=== PATIENT | female | born 1975 | race Two or more races ===

== ENCOUNTER 2019-02-21 14:31 | Emergency (ER) | payer SELFPAY ==
--- NOTE | 2019-02-21 14:49 | ER Document Report ---
ED Medical Screen (RME) - General Chief Complaint: Suicidal Ideation Stated Complaint: SUCIDIAL IDEATION Time Seen by Provider: 02/21/19 14:47 Mode of Arrival: Ambulatory Information source: Patient Notes: Patient presents emergency department with complaints that she is depressed and suicidal. Reports she has a plan. Does not admit to attempting suicide in the past. Reports she is out of her meds and thinks her boyfriend is cheating on her. I have greeted and performed a rapid initial assessment of this patient. A comprehensive ED assessment and evaluation of the patient, analysis of test results and completion of the medical decision making process will be conducted by additional ED providers. Dictation of this chart was performed using voice recognition software; therefore, there may be some unintended grammatical errors. TRAVEL OUTSIDE OF THE [place] IN LAST 30 DAYS: No - Related Data Allergies/Adverse Reactions: No Known Allergies Allergy (Verified 02/21/19 14:35) Physical Exam - Vital signs Vitals: Temp Pulse Resp BP Pulse Ox 97.8 F 75 16 124/89 H 97 02/21/19 14:41 02/21/19 14:41 02/21/19 14:41 02/21/19 14:41 02/21/19 14:41 Course - Vital Signs Vital signs: Temp Pulse Resp BP Pulse Ox 97.8 F 75 16 124/89 H 97 02/21/19 14:41 02/21/19 14:41 02/21/19 14:41 02/21/19 14:41 02/21/19 14:41
[2019-02-21 15:09] LABS: APPEARANCE,URINE CLEAR; BILIRUBIN,URINE NEGATIVE (NEGATIVE); COLOR,URINE YELLOW; GLUCOSE, URINE NEGATIVE (NEGATIVE); KETONES,URINE NEGATIVE (NEGATIVE); LEUKOCYTE ESTERASE,URINE NEGATIVE (NEGATIVE); NITRITE,URINE NEGATIVE (NEGATIVE); PROTEIN,URINE NEGATIVE (NEGATIVE); URINE SPECIFIC GRAVITY 1.014; UROBILINOGEN,URINE NEGATIVE mg/dL (<2.0)
[2019-02-21 15:13] LABS: ABSOLUTE BASOPHILS # (AUTO) 0.1 10^3/uL (0.0-0.2); ABSOLUTE EOSINOPHILS # (AUTO) 0.2 10^3/uL (0.0-0.6); ABSOLUTE MONOCYTES (AUTO) 0.5 10^3/uL (0.1-1.4); ABSOLUTE NEUT (AUTO) 3.6 10^3/uL (1.7-8.2); BASOPHILS % (AUTO) 1.6 % (0-2); EOSINOPHILS % (AUTO) 2.6 % (0-6); HEMATOCRIT 36.5 % (36.0-47.0); HEMOGLOBIN 12.4 g/dL (12.0-15.5); LYMPHOCYTES % (AUTO) 31.3 % (13-45); MEAN CORPUSCULAR HEMOGLOBIN 26.4 pg (27.0-33.4); MEAN CORPUSCULAR VOLUME 78 fl (80-97); MONOCYTES % (AUTO) 8.2 % (3-13); PLATELET COUNT 275 10^3/uL (150-450); RED BLOOD COUNT 4.71 10^6/uL (3.72-5.28); RED CELL DISTRIBUTION WIDTH 16.8 % (11.5-14.0); SEGMENTED NEUTROPHILS % (AUTO) 56.3 % (42-78); TOTAL CELLS COUNTED % (AUTO) 100 %; WHITE BLOOD COUNT 6.4 10^3/uL (4.0-10.5)
[2019-02-21 15:35] LABS: URINE AMPHETAMINES SCREEN NEGATIVE; URINE BARBITURATES SCREEN NEGATIVE; URINE BENZODIAZEPINES SCREEN NEGATIVE; URINE COCAINE SCREEN NEGATIVE; URINE MARIJUANA (THC) SCREEN NEGATIVE; URINE METHADONE SCREEN NEGATIVE; URINE PHENCYCLIDINE SCREEN NEGATIVE
[2019-02-21 15:40] LABS: ALANINE AMINOTRANSFERASE 33 U/L (9-52); ALKALINE PHOSPHATASE 64 U/L (38-126); ANION GAP 9 (5-19); ASPARTATE AMINO TRANSFERASE 25 U/L (14-36); BILIRUBIN,DIRECT 0.3 mg/dL (0.0-0.4); BILIRUBIN,TOTAL 0.5 mg/dL (0.2-1.3); BLOOD UREA NITROGEN 9 mg/dL (7-20); CALCIUM 9.4 mg/dL (8.4-10.2); CARBON DIOXIDE 24 mmol/L (22-30); CHLORIDE 109 mmol/L (98-107); GLUCOSE 98 mg/dL (75-110); SODIUM 141.6 mmol/L (137-145)
[2019-02-21 15:41] LABS: ACETAMINOPHEN < 10 ug/mL (10-30); ALBUMIN 4.2 g/dL (3.5-5.0); ALCOHOL < 10 mg/dL (NONE DETECTED); SALICYLATE < 1.0 mg/dL (2.0-20.0); TOTAL PROTEIN 7.4 g/dL (6.3-8.2)
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
--- NOTE | 2019-02-21 16:34 | EKG REPORT ---
SEVERITY:- ABNORMAL ECG - SINUS RHYTHM LEFT AXIS DEVIATION LEFT VENTRICULAR HYPERTROPHY NONSPECIFIC ST-T CHANGES- INFERIOR LEADS : Confirmed by: Hilario Jensen MD 21-Feb-2019 16:33:34
[2019-02-21] MEDS ORDERED: SERTRALINE HCL 50 MG TABLET PO ONE (19:55)
[2019-02-21] MEDS ORDERED: ARIPIPRAZOLE 5 MG TABLET PO ONE (19:55)
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
--- NOTE | 2019-02-22 09:32 | ER Document Report ---
Doctor's Note Notes: 02/22/19 09:31 Patient seen and evaluated. She was upset when I entered the room and states she feels no better. Patient states she still feels like she wants to be and is having thoughts of killing herself. I asked if she was discharged home today what she would do and she told me she would "slit my wrists or take pills". Patient is still actively suicidal with plan. She will remain in the emergency room or be admitted for further psychiatric management.
[2019-02-22] MEDS ORDERED: SERTRALINE HCL 50 MG TABLET PO SCH (10:00)
[2019-02-22] MEDS ORDERED: ARIPIPRAZOLE 5 MG TABLET PO SCH (10:00)
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
[2019-02-22 14:26] VITALS: BP 138/84
== END 2019-02-22 14:30 ==
LOC: ER 14:31
DX: F31.60 Bipolar disorder, current episode mixed, unspecified (principal); R45.851 Suicidal ideations; R45.850 Homicidal ideations; T43.596A Underdosing of other antipsychotics and neuroleptics, initial encounter; T43.226A Underdosing of selective serotonin reuptake inhibitors, initial encounter; Z91.128 Patient's intentional underdosing of medication regimen for other reason; Z91.14 Patient's other noncompliance with medication regimen; J45.909 Unspecified asthma, uncomplicated
CPT/HCPCS: 36415; 80053; 80307; 81001; 81025; 85025; 93005; 93010; 99285

== ENCOUNTER 2019-05-13 23:39 | Emergency (ER) | payer MEDICAID ==
[2019-05-13] MEDS ORDERED: ACETAMINOPHEN 325 MG TABLET PO ONE (23:49)
--- NOTE | 2019-05-13 23:51 | ER Document Report ---
ED General - General Stated Complaint: ABDOMINAL PAIN Time Seen by Provider: 05/13/19 23:49 Notes: Patient is a pleasant 43-year-old female presents with complaints of abdominal pain. Abdominal pain started approximately 20 minutes ago. She points to her suprapubic region is a area of the abdominal pain. She denies any vomiting. No fevers. No abnormal vaginal discharge or bleeding. Last menstrual period was 1 week ago. She said this was a normal period for her. She is sexually active. No history of abdominal surgeries. She denies take any medications on a regular basis. She denies any chronic medical problems. Nothing seems to make the pain better or worse. TRAVEL OUTSIDE OF THE [place] IN LAST 30 DAYS: No - Related Data Allergies/Adverse Reactions: No Known Allergies Allergy (Verified 02/21/19 14:35) Past Medical History - Social History Smoking Status: Unknown if Ever Smoked Frequency of alcohol use: None Drug Abuse: None Family History: Reviewed & Not Pertinent Pulmonary Medical History: Reports: Hx Asthma Renal/ Medical History: Denies: Hx Peritoneal Dialysis Psychiatric Medical History: Reports: Hx Bipolar Disorder Review of Systems - Review of Systems Notes: My Normal Review Basic REVIEW OF SYSTEMS: CONSTITUTIONAL : Denies fever, chills, or sweats. Denies recent illness. EENT: Denies eye, ear, throat, or mouth pain or symptoms. Denies nasal or sinus congestion. RESPIRATORY: Denies cough, cold, or chest congestion. Denies shortness of breath, difficulty breathing, or wheezing. GASTROINTESTINAL: Abdominal pain. Denies nausea, vomiting, or diarrhea. GENITOURINARY: Denies difficulty urinating, painful urination, burning, frequency, or blood in urine. FEMALE GENITOURINARY: Denies vaginal bleeding, abnormal or irregular periods. LMP: 1 week ago MUSCULOSKELETAL: Denies neck or back pain or joint pain or swelling. SKIN: Denies rash or skin lesions. NEUROLOGICAL: Denies altered mental status or loss of consciousness. Denies headache. Denies weakness or paralysis or loss of use of either side. Denies problems with gait or speech. Denies sensory or motor loss. ALL OTHER SYSTEMS REVIEWED AND NEGATIVE. Physical Exam - Vital signs Vitals: Temp Pulse Resp BP Pulse Ox 97.3 F 65 20 115/66 99 05/13/19 23:39 05/13/19 23:39 05/13/19 23:39 05/13/19 23:39 05/13/19 23:39 - Notes Notes: General Appearance: Well nourished, alert, cooperative, no acute distress, no obvious discomfort. Well-appearing Vitals: reviewed, See vital signs table. Head: no swelling or tenderness to the head Eyes: PERRL, EOMI, Conjuctiva clear Mouth: No decreasd moisture Throat: No tonsillar inflammation, No airway obstruction, No lymphadenopathy Neck: Supple, no neck tenderness, No thyromegaly Lungs: No wheezing, No rales, No rhonci, No accessory muscle use, good air exchange bilaterally. Heart: Normal rate, Regular rythm, No murmur, no rub Abdomen: Normal BS, soft, No rigidity, patient has diffuse mild tenderness patient of the abdomen is worse over the suprapubic region., No guarding, no rebound, no abdominal masses, no organomegaly Extremities: good pulses in all extremities, no swelling or tenderness in the extremities, no edema. Skin: warm, dry, appropriate color, no rash Neuro: speech clear, oriented x 3, normal affect, responds appropriately to questions. normal gait. Course - Re-evaluation Re-evalutation: 05/14/19 01:08 Reevaluation patient continues to appear fine. Her abdominal exam is very benign. She has no leukocytosis and she looks well. Urine does show some evidence of infection that she does have large leukocyte esterase and 80 white blood cells. She also has a lot of epithelial cells that this could be contaminant but being that the patient does have suprapubic abdominal pain we will treat her upfront and send her urine for culture. I informed the plan to the patient she is agreeable to it. I informed her of a low threshold to return to ER if she has worsening pain, fevers, or vomiting. Patient to return to the ER if she still having pain after 24 hours. Patient agrees with plan and will be discharged home. Dictation of this chart was performed using voice recognition software; therefore, there may be some unintended grammatical errors. - Vital Signs Vital signs: Temp Pulse Resp BP Pulse Ox 97.3 F 65 20 115/66 99 05/13/19 23:39 05/13/19 23:39 05/13/19 23:39 05/13/19 23:39 05/13/19 23:39 - Laboratory Result Diagrams: 05/14/19 00:20 05/14/19 00:20 Laboratory results interpreted by me: 05/13/19 05/14/19 23:45 00:20 Hgb 11.4 L Hct 34.6 L MCH 26.2 L RDW 14.5 H Ur Leukocyte Esterase LARGE H Discharge - Discharge Clinical Impression: Pyuria Abdominal pain Qualifiers: Abdominal location: unspecified location Qualified Code(s): R10.9 - Unspecified abdominal pain Condition: Good Disposition: HOME, SELF-CARE Additional Instructions: Your blood work did not show any concerning findings in regards to your abdominal pain. Urine does show some evidence of a likely infection. This could be why you are having some pain in the lower portion of your abdomen. We will start you on an antibiotic called Keflex. Please take the Keflex as prescribed. You will need to take a total of 5 days of this antibiotic. The first 3 days supply will be given to you here. The last 2 days of supply of medication need to be filled at the pharmacy. These follow-up with your doctor on Friday for reevaluation. Please have a low threshold to return to ER if you have worsening pain, fevers, vomiting, or feel unwell. You should be seeing some improvement in your pain next 24 hours. If you are still having significant pain after 24 hours you should return to the ER for reevaluation. Prescriptions: Cephalexin Monohydrate [Keflex 500 mg Capsule] 500 mg PO BID #4 capsule Cephalexin Monohydrate [Keflex 500 mg Capsule] 500 mg PO BID #6 capsule
[2019-05-14 00:08] LABS: APPEARANCE,URINE CLOUDY; BILIRUBIN,URINE NEGATIVE (NEGATIVE); COLOR,URINE YELLOW; GLUCOSE, URINE NEGATIVE (NEGATIVE); KETONES,URINE NEGATIVE (NEGATIVE); LEUKOCYTE ESTERASE,URINE LARGE (NEGATIVE); NITRITE,URINE NEGATIVE (NEGATIVE); PROTEIN,URINE NEGATIVE (NEGATIVE); URINE SPECIFIC GRAVITY 1.029; UROBILINOGEN,URINE NEGATIVE mg/dL (<2.0)
[2019-05-14 00:37] LABS: ABSOLUTE BASOPHILS # (AUTO) 0.1 10^3/uL (0.0-0.2); ABSOLUTE EOSINOPHILS # (AUTO) 0.2 10^3/uL (0.0-0.6); ABSOLUTE LYMPHOCYTES (AUTO) 2.2 10^3/uL (0.5-4.7); ABSOLUTE MONOCYTES (AUTO) 0.3 10^3/uL (0.1-1.4); BASOPHILS % (AUTO) 1.2 % (0-2); EOSINOPHILS % (AUTO) 3.2 % (0-6); HEMATOCRIT 34.6 % (36.0-47.0); HEMOGLOBIN 11.4 g/dL (12.0-15.5); LYMPHOCYTES % (AUTO) 38.3 % (13-45); MEAN CORPUSCULAR HEMOGLOBIN 26.2 pg (27.0-33.4); MEAN CORPUSCULAR VOLUME 80 fl (80-97); MONOCYTES % (AUTO) 5.3 % (3-13); PLATELET COUNT 301 10^3/uL (150-450); RED BLOOD COUNT 4.35 10^6/uL (3.72-5.28); RED CELL DISTRIBUTION WIDTH 14.5 % (11.5-14.0); TOTAL CELLS COUNTED % (AUTO) 100 %; WHITE BLOOD COUNT 5.8 10^3/uL (4.0-10.5)
[2019-05-14 00:51] LABS: ALKALINE PHOSPHATASE 73 U/L (38-126); ANION GAP 9 (5-19); ASPARTATE AMINO TRANSFERASE 19 U/L (14-36); BILIRUBIN,DIRECT 0.1 mg/dL (0.0-0.4); BILIRUBIN,TOTAL 0.2 mg/dL (0.2-1.3); BLOOD UREA NITROGEN 13 mg/dL (7-20); CALCIUM 9.3 mg/dL (8.4-10.2); CARBON DIOXIDE 26 mmol/L (22-30); CHLORIDE 106 mmol/L (98-107); GLUCOSE 109 mg/dL (75-110); POTASSIUM 3.8 mmol/L (3.6-5.0)
[2019-05-14] MEDS ORDERED: CEPHALEXIN 500 MG CAPSULE PO ONE (01:09)
[2019-05-14 01:23] VITALS: BP 145/78
== END 2019-05-14 01:17 | disposition home or self-care (01) ==
LOC: ER 23:39
DX: N39.0 Urinary tract infection, site not specified (principal); R10.9 Unspecified abdominal pain; R10.30 Lower abdominal pain, unspecified; J45.909 Unspecified asthma, uncomplicated
CPT/HCPCS: 36415; 80053; 81001; 84703; 85025; 87086; 87088; 87186; 99284

== ENCOUNTER 2019-07-05 12:20 | Emergency (ER) | payer SELFPAY ==
[2019-07-05] MEDS ORDERED: ONDANSETRON 4 MG TAB.RAPDIS PO ONE (13:01)
--- NOTE | 2019-07-05 13:18 | ER Document Report ---
ED Medical Screen (RME) - General Chief Complaint: Nausea/Vomiting Stated Complaint: ABDOMINAL PAIN Time Seen by Provider: 07/05/19 12:43 Notes: Patient is a 44-year-old female who presents emergency department with a chief complaint of nausea and vomiting. Patient states that for the past 3 weeks she has vomited every morning. She is able to keep food down throughout the day, but only wakes up in the morning. Last menstrual cycle was May 26. She is not normally late on her menstrual cycles. Patient last vomited this morning, but was able to keep food down afterwards. Denies abdominal pain. Exam: Soft nontender abdomen. I have greeted and performed a rapid initial assessment of this patient. A comprehensive ED assessment and evaluation of the patient, analysis of test results and completion of medical decision making process will be conducted by an additional ED providers. TRAVEL OUTSIDE OF THE [place] IN LAST 30 DAYS: No - Related Data Allergies/Adverse Reactions: No Known Allergies Allergy (Verified 02/21/19 14:35) Past Medical History - Social History Chew tobacco use (# tins/day): No Frequency of alcohol use: None Drug Abuse: None Pulmonary Medical History: Reports: Hx Asthma Renal/ Medical History: Denies: Hx Peritoneal Dialysis Psychiatric Medical History: Reports: Hx Bipolar Disorder Physical Exam - Vital signs Vitals: Temp Pulse Resp BP Pulse Ox 98.3 F 70 22 H 147/82 H 96 07/05/19 12:30 07/05/19 12:30 07/05/19 12:30 07/05/19 12:30 07/05/19 12:30 Course - Vital Signs Vital signs: Temp Pulse Resp BP Pulse Ox 98.3 F 70 22 H 147/82 H 96 07/05/19 12:30 07/05/19 12:30 07/05/19 12:30 07/05/19 12:30 07/05/19 12:30
[2019-07-05 13:30] LABS: ABSOLUTE EOSINOPHILS # (AUTO) 0.2 10^3/uL (0.0-0.6); ABSOLUTE LYMPHOCYTES (AUTO) 1.5 10^3/uL (0.5-4.7); ABSOLUTE MONOCYTES (AUTO) 0.3 10^3/uL (0.1-1.4); ABSOLUTE NEUT (AUTO) 2.7 10^3/uL (1.7-8.2); BASOPHILS % (AUTO) 0.1 % (0-2); EOSINOPHILS % (AUTO) 3.6 % (0-6); HEMATOCRIT 36.4 % (36.0-47.0); HEMOGLOBIN 12.2 g/dL (12.0-15.5); LYMPHOCYTES % (AUTO) 31.3 % (13-45); MEAN CORPUSCULAR HEMOGLOBIN 26.3 pg (27.0-33.4); MEAN CORPUSCULAR HGB CONC 33.5 g/dL (32.0-36.0); MEAN CORPUSCULAR VOLUME 79 fl (80-97); MONOCYTES % (AUTO) 6.3 % (3-13); PLATELET COUNT 299 10^3/uL (150-450); RED BLOOD COUNT 4.63 10^6/uL (3.72-5.28); RED CELL DISTRIBUTION WIDTH 14.6 % (11.5-14.0); SEGMENTED NEUTROPHILS % (AUTO) 58.7 % (42-78); TOTAL CELLS COUNTED % (AUTO) 100 %; WHITE BLOOD COUNT 4.7 10^3/uL (4.0-10.5)
[2019-07-05 13:57] LABS: ALBUMIN 4.2 g/dL (3.5-5.0); ALKALINE PHOSPHATASE 67 U/L (38-126); ANION GAP 11 (5-19); ASPARTATE AMINO TRANSFERASE 22 U/L (14-36); BILIRUBIN,DIRECT 0.1 mg/dL (0.0-0.4); BILIRUBIN,TOTAL 0.3 mg/dL (0.2-1.3); BLOOD UREA NITROGEN 12 mg/dL (7-20); CALCIUM 9.3 mg/dL (8.4-10.2); CARBON DIOXIDE 24 mmol/L (22-30); CHLORIDE 107 mmol/L (98-107); GLUCOSE 105 mg/dL (75-110); POTASSIUM 4.2 mmol/L (3.6-5.0); TOTAL PROTEIN 7.6 g/dL (6.3-8.2)
[2019-07-05 14:20] LABS: APPEARANCE,URINE CLEAR; BILIRUBIN,URINE NEGATIVE (NEGATIVE); COLOR,URINE YELLOW; GLUCOSE, URINE NEGATIVE (NEGATIVE); KETONES,URINE TRACE mg/dL (NEGATIVE); PROTEIN,URINE NEGATIVE (NEGATIVE); URINE SPECIFIC GRAVITY 1.021
--- NOTE | 2019-07-05 15:52 | ER Document Report ---
ED General - General Chief Complaint: Nausea/Vomiting Stated Complaint: ABDOMINAL PAIN Time Seen by Provider: 07/05/19 12:43 Mode of Arrival: Ambulatory Information source: Patient Notes: This 44-year-old female presents emergency department with reports that she has been nauseated and gagging every morning for the past 3 weeks. She reports she has not been vomiting and she is able to drink and eat throughout the day without any problems. She also reports gum helps with the nausea. Patient reports she is homeless [facility] at this time. Reports she just moved from [place] to [place] to be with her boyfriend. Reports her boyfriend lives with Ana Laura friend of his and they are supposed to be looking for a place but she needs to be out of the jail by the end of the month. Patient reports she is very stressed. Denies fever or diarrhea. Patient reports she is bipolar taking Zoloft and Abilify without problems for a while. Reports these are not new meds. TRAVEL OUTSIDE OF THE [place] IN LAST 30 DAYS: No - HPI Onset: Other - 3 weeks Onset/Duration: Persistent Quality of pain: No pain Associated symptoms: Nausea. denies: Vomiting Exacerbated by: Denies Relieved by: Denies Similar symptoms previously: No Recently seen / treated by doctor: No - Related Data Allergies/Adverse Reactions: No Known Allergies Allergy (Verified 02/21/19 14:35) Past Medical History - General Information source: Patient Last Menstrual Period: 05/26/19 - Social History Smoking Status: Never Smoker Chew tobacco use (# tins/day): No Frequency of alcohol use: None Drug Abuse: None Lives with: Homeless Family History: Reviewed & Not Pertinent Patient has suicidal ideation: No Patient has homicidal ideation: No Pulmonary Medical History: Reports: Hx Asthma Renal/ Medical History: Denies: Hx Peritoneal Dialysis Psychiatric Medical History: Reports: Hx Bipolar Disorder Past Surgical History: Reports: Hx Tubal Ligation Review of Systems - Review of Systems Notes: Review HPI for review of systems., All other systems negative Physical Exam - Vital signs Vitals: Temp Pulse Resp BP Pulse Ox 98.3 F 70 22 H 147/82 H 96 07/05/19 12:30 07/05/19 12:30 07/05/19 12:30 07/05/19 12:30 07/05/19 12:30 - Notes Notes: PHYSICAL EXAMINATION: GENERAL: Well-appearing and in no acute distress HEAD: Atraumatic, normocephalic. EYES: Pupils equal round and reactive to light, extraocular movements intact, sclera anicteric, conjunctiva are normal. ENT: nares patent, oropharynx clear without exudates. Moist mucous membranes. NECK: Normal range of motion, supple without lymphadenopathy LUNGS: CTAB and equal. No wheezes rales or rhonchi. HEART: Regular rate and rhythm without murmurs ABDOMEN: Soft, no tenderness. No guarding, no rebound EXTREMITIES: Normal range of motion, no pitting edema. No cyanosis. NEUROLOGICAL: Cranial nerves grossly intact. Normal sensory/motor exams. PSYCH: Normal mood, normal affect. SKIN: Warm, Dry, normal turgor, no rashes or lesions noted Course - Re-evaluation Re-evalutation: 07/05/19 This 44-year-old female presents emergency department with complaints of nausea and gagging in the morning. She reports she does not vomit. Reports she is able to eat and drink fine without any problems rest today. Also reports gum helps with the nausea. Patient reports she is very nervous she is homeless and will have to be getting out of the jail within the end of the month. She reports she came to [place] to be with her boyfriend Andrew. She reports Andrew lives with a friend, Piero. Piero's will not let Crystal moving with the family. Patient denies nausea at this time. Labs unremarkable patient is negative for . Patient was instructed to monitor symptoms return for concerns follow-up with a primary care provider. She does have Medicaid and was provided with a list of primary care providers. Dictation of this chart was performed using voice recognition software; therefore, there may be some unintended grammatical errors. - Vital Signs Vital signs: Temp Pulse Resp BP Pulse Ox 97.7 F 61 20 144/93 H 96 07/05/19 16:34 07/05/19 16:34 07/05/19 16:34 07/05/19 16:34 07/05/19 16:34 - Laboratory Result Diagrams: 07/05/19 13:11 07/05/19 13:11 Laboratory results interpreted by me: 07/05/19 07/05/19 13:11 13:11 MCV 79 L MCH 26.3 L RDW 14.6 H Urine Ketones TRACE H Urine Urobilinogen 2.0 H Leukocyte Esterase Rfl TRACE H Discharge - Discharge Clinical Impression: Nausea Condition: Stable Disposition: HOME, SELF-CARE Instructions: Family Physicians / Practices, Nausea or Vomiting, Nonspecific ([facility]) Additional Instructions: *You have been evaluated for nausea and gagging *Ensure adequate fluid intake as discussed to prevent dehydration *Follow up with a primary care provider within one week for recheck *Return to ED for worsening condition, changes, needs Monitor your blood pressure. Your blood pressure was elevated today. This may be because you were anxious, in pain or because you need medication. It is important to follow up with your primary care provider for full evaluation. Forms: Elevated Blood Pressure
[2019-07-05 16:38] VITALS: BP 144/93
== END 2019-07-05 16:57 | disposition home or self-care (01) ==
LOC: ER 12:20
DX: R11.0 Nausea (principal); J45.909 Unspecified asthma, uncomplicated; F31.9 Bipolar disorder, unspecified; Z79.899 Other long term (current) drug therapy; Z59.0 Homelessness; Z98.51 Tubal ligation status
CPT/HCPCS: 99283; 36415; 87086; 83690; 84703; 85025; 80053; 81001; S0119

== ENCOUNTER 2019-07-22 13:30 | Emergency (ER) | payer MEDICAID ==
--- NOTE | 2019-07-22 13:47 | ER Document Report ---
ED Medical Screen (RME) - General Chief Complaint: Psych Problem Stated Complaint: SUICIDAL IDEATION Time Seen by Provider: 07/22/19 13:43 Notes: 44-year-old female with bipolar disorder presents to the emergency department with chief complaint of suicidal ideations. She is with her boil off machine operator cloth has been trying to assist her with housing. Patient states that she was in a [facility] days, was evicted, and is been staying at a hotel in the interval. Patient states she is running out of money and expressed to her boil off machine operator cloth that she had thoughts of killing herself. No plan. No auditory or visual hallucinations. Exam: Well-appearing in no acute distress, flat affect, linear thought process and normal speech, depressed mood. I have greeted and performed a rapid initial assessment of this patient. A comprehensive ED assessment and evaluation of the patient, analysis of test results and completion of medical decision making process will be conducted by an additional ED providers. TRAVEL OUTSIDE OF THE [place] IN LAST 30 DAYS: No - Related Data Allergies/Adverse Reactions: No Known Allergies Allergy (Verified 02/21/19 14:35) Home Medications: zoloft. abilify Past Medical History - Social History Frequency of alcohol use: None Drug Abuse: None Pulmonary Medical History: Reports: Hx Asthma Renal/ Medical History: Denies: Hx Peritoneal Dialysis Psychiatric Medical History: Reports: Hx Bipolar Disorder Past Surgical History: Reports: Hx Tubal Ligation Physical Exam - Vital signs Vitals: Temp Pulse Resp BP Pulse Ox 97.7 F 74 20 145/82 H 98 07/22/19 13:35 07/22/19 13:35 07/22/19 13:35 07/22/19 13:35 07/22/19 13:35 Course - Vital Signs Vital signs: Temp Pulse Resp BP Pulse Ox 97.7 F 74 20 145/82 H 98 07/22/19 13:35 07/22/19 13:35 07/22/19 13:35 07/22/19 13:35 07/22/19 13:35
[2019-07-22 14:29] LABS: ABSOLUTE EOSINOPHILS # (AUTO) 0.2 10^3/uL (0.0-0.6); ABSOLUTE LYMPHOCYTES (AUTO) 1.7 10^3/uL (0.5-4.7); ABSOLUTE MONOCYTES (AUTO) 0.3 10^3/uL (0.1-1.4); ABSOLUTE NEUT (AUTO) 2.4 10^3/uL (1.7-8.2); BASOPHILS % (AUTO) 0.9 % (0-2); EOSINOPHILS % (AUTO) 3.4 % (0-6); HEMOGLOBIN 12.7 g/dL (12.0-15.5); LYMPHOCYTES % (AUTO) 37.7 % (13-45); MEAN CORPUSCULAR HGB CONC 33.5 g/dL (32.0-36.0); MEAN CORPUSCULAR VOLUME 78 fl (80-97); MONOCYTES % (AUTO) 6.4 % (3-13); PLATELET COUNT 297 10^3/uL (150-450); RED BLOOD COUNT 4.88 10^6/uL (3.72-5.28); RED CELL DISTRIBUTION WIDTH 15.1 % (11.5-14.0); SEGMENTED NEUTROPHILS % (AUTO) 51.6 % (42-78); TOTAL CELLS COUNTED % (AUTO) 100 %; WHITE BLOOD COUNT 4.6 10^3/uL (4.0-10.5)
[2019-07-22 14:39] LABS: APPEARANCE,URINE SLIGHTLY-CLOUDY; BILIRUBIN,URINE NEGATIVE (NEGATIVE); COLOR,URINE YELLOW; GLUCOSE, URINE NEGATIVE (NEGATIVE); KETONES,URINE NEGATIVE (NEGATIVE); LEUKOCYTE ESTERASE,URINE SMALL (NEGATIVE); NITRITE,URINE NEGATIVE (NEGATIVE); PROTEIN,URINE NEGATIVE (NEGATIVE); URINE SPECIFIC GRAVITY 1.025
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
[2019-07-22 14:51] LABS: URINE AMPHETAMINES SCREEN NEGATIVE; URINE BARBITURATES SCREEN NEGATIVE; URINE BENZODIAZEPINES SCREEN NEGATIVE; URINE COCAINE SCREEN NEGATIVE; URINE MARIJUANA (THC) SCREEN NEGATIVE; URINE METHADONE SCREEN NEGATIVE; URINE PHENCYCLIDINE SCREEN NEGATIVE
[2019-07-22 14:57] LABS: ALBUMIN 4.4 g/dL (3.5-5.0); ALKALINE PHOSPHATASE 66 U/L (38-126); ANION GAP 7 (5-19); ASPARTATE AMINO TRANSFERASE 26 U/L (14-36); BILIRUBIN,DIRECT 0.1 mg/dL (0.0-0.4); BILIRUBIN,TOTAL 0.3 mg/dL (0.2-1.3); BLOOD UREA NITROGEN 14 mg/dL (7-20); CALCIUM 9.8 mg/dL (8.4-10.2); CARBON DIOXIDE 28 mmol/L (22-30); CHLORIDE 107 mmol/L (98-107); GLUCOSE 114 mg/dL (75-110)
[2019-07-22 15:02] LABS: ACETAMINOPHEN < 10 ug/mL (10-30); ALCOHOL < 10 mg/dL (NONE DETECTED); SALICYLATE < 1.0 mg/dL (2.0-20.0)
--- NOTE | 2019-07-22 17:32 | ER Document Report ---
Entered by POONAM PRESCOTT SCRIBE 07/22/19 1417 Acting as scribe for:CLARISSA SINGH MD ED Psych Disorder / Suicide <MARTHA BLAKE - Last Filed: 07/22/19 17:50> - General Mode of Arrival: Ambulatory Information source: Patient TRAVEL OUTSIDE OF THE U.S. IN LAST 30 DAYS: No - Related Data Home Medications: zoloft. abilify <CLARISSA SINGH - Last Filed: 07/22/19 18:41> - General Chief Complaint: Psych Problem Stated Complaint: SUICIDAL IDEATION Time Seen by Provider: 07/22/19 13:43 Primary Care Provider: [facility] [Outside] - Follow up as needed Notes: 44-year-old female with bipolar disorder that presents to the emergency department today with complaints of suicidal ideation. Patient is able to correlate her suicidal ideation with being homeless and now being kicked out of the homeless skilled nursing. Patient states that she moved here from [place] to be with her boyfriend. Patient states "hotels have gotten expensive". Patient has been off of her Zoloft and Abilify for several months. Patient states these medications did seem to help her when she was on them. Patient denies having any plan on how she would harm her self. (CLARISSA SINGH) - Related Data Allergies/Adverse Reactions: No Known Allergies Allergy (Verified 02/21/19 14:35) Past Medical History - General Information source: Patient - Social History Smoking Status: Never Smoker Cigarette use (# per day): No Frequency of alcohol use: None Drug Abuse: None Lives with: Family Family History: Reviewed & Not Pertinent Patient has suicidal ideation: Yes Patient has homicidal ideation: No Pulmonary Medical History: Reports: Hx Asthma Psychiatric Medical History: Reports: Hx Bipolar Disorder Past Surgical History: Reports: Hx Tubal Ligation <CLARISSA SINGH - Last Filed: 07/22/19 18:41> Review of Systems - Review of Systems Constitutional: No symptoms reported EENT: No symptoms reported Cardiovascular: No symptoms reported Respiratory: No symptoms reported Gastrointestinal: No symptoms reported Genitourinary: No symptoms reported Female Genitourinary: No symptoms reported Musculoskeletal: No symptoms reported Skin: No symptoms reported Hematologic/Lymphatic: No symptoms reported Neurological/Psychological: See HPI, Suicidal ideation -: Yes All other systems reviewed and negative <CLARISSA SINGH - Last Filed: 07/22/19 18:41> Physical Exam <CLARISSA SINGH - Last Filed: 07/22/19 18:41> - Vital signs Vitals: Temp Pulse Resp BP Pulse Ox 97.7 F 74 20 145/82 H 98 07/22/19 13:35 07/22/19 13:35 07/22/19 13:35 07/22/19 13:35 07/22/19 13:35 - Notes Notes: Physical Exam: General: Alert, comes with all belongings in a wheelchair. HEENT: Normocephalic. Atraumatic. PERRL. Extraocular movements intact. Oropharynx clear. Neck: Supple. Non-tender. Respiratory: No respiratory distress. Clear and equal breath sounds bilaterally. Cardiovascular: Regular rate and rhythm. Abdominal: Normal Inspection. Non-tender. No distension. Normal Bowel Sounds. Back: No gross abnormalities. Extremities: Moves all four extremities. Upper extremities: Normal inspection. Normal ROM. Lower extremities: Normal inspection. No edema. Normal ROM. Neurological: Normal cognition. AAOx4. Normal speech. Psychological: Depressed. Endorses suicidal ideation without plan. Skin: Warm. Dry. Normal color. (CLARISSA SINGH) Course - Laboratory Result Diagrams: 07/22/19 14:00 07/22/19 13:44 <MARTHA BLAKE - Last Filed: 07/22/19 17:50> - Laboratory Result Diagrams: 07/22/19 14:00 07/22/19 13:44 - EKG Interpretation by [place] EKG shows normal: Sinus rhythm, [place], Intervals, QRS Complexes, ST-T Waves Rate: Normal - 62 Rhythm: NSR [place]/QRS: LAHB/LAFB Voltage: Consistant with LVH When compared to previous EKG there are: No significant change <CLAIRSSA SINGH - Last Filed: 07/22/19 18:41> - Vital Signs Vital signs: Temp Pulse Resp BP Pulse Ox 97.7 F 74 20 145/82 H 98 07/22/19 13:35 07/22/19 13:35 07/22/19 13:35 07/22/19 13:35 07/22/19 13:35 - Laboratory Laboratory results interpreted by me: 07/22/19 07/22/1907/22/19 13:44 13:50 14:00 MCV 78 L MCH 26.0 L RDW 15.1 H Glucose 114 H Urine Urobilinogen 2.0 H Ur Leukocyte Esterase SMALL H Salicylates < 1.0 L Acetaminophen < 10 L Discharge <MARTHA BLAKE - Last Filed: 07/22/19 17:50> <CLARISSA SINGH - Last Filed: 07/22/19 18:41> - Discharge Clinical Impression: Passive suicidal ideations, Depressed bipolar disorder, Homeless Condition: Stable Disposition: HOME, SELF-CARE Additional Instructions: You have been evaluated by both medical and behavioral health teams and have been deemed appropriate for discharge. You are encouraged to accept the offer of assistance in [place] you disclosed to the behavioral health team. You have been provided with the contact information for mobile crisis, as needed. Bipolar Disorder Bipolar disorder is also called manic-depressive disorder. Depression alternates with brain hyperactivity called avila. Each phase lasts from several days to a few weeks. We don't know exactly what causes bipolar disorder, but it's treatable. During the "manic phase," you may feel elated and energetic. You may have racing thoughts, rapid speech, increased activity, and grandiose ideas. During this time, you may not realize how poor your judgement is. Inappropriate spending, drug abuse, excessive alcohol use, marriage problems, and irresponsible sexual behavior are common during the manic phase. During the "depressive phase," you might feel depressed, guilty, worthless, fatigued, and unable to concentrate. You might have thoughts of suicide. Good treatments are available for bipolar disorder. [place] is a classic drug for bipolar disorder, and is still often useful. If the manic phase is very mild, an antidepressant alone can be prescribed. If the manic phase is very severe, an antipsychotic medicine (such as Haldol) may be needed. The treatment must be matched to your symptoms, so it's important to work closely with your psychiatric care provider. Contact your physician, the hospital emergency center, crisis line, or your counsellor if you are losing control or having self-destructive thoughts. FOLLOW-UP CARE: If you have been referred to a physician for follow-up care, call the physicians office for an appointment as you were instructed or within the next two days. If you experience worsening or a significant change in your symptoms, notify the physician immediately or return to the Emergency Department at any time for re-evaluation. Referrals: [facility] [Outside] - Follow up as needed Scribe Attestation: 07/22/19 14:28 I personally performed the services described in the documentation, reviewed and edited the documentation which was dictated to the scribe in my presence, and it accurately records my words and actions. (CLARISSA SINGH) I personally performed the services described in the documentation, reviewed and edited the documentation which was dictated to the scribe in my presence, and it accurately records my words and actions.
[2019-07-22 18:55] VITALS: BP 128/83
--- NOTE | 2019-07-22 20:15 | EKG REPORT ---
SEVERITY:- ABNORMAL ECG - SINUS RHYTHM LEFT ANTERIOR FASCICULAR BLOCK LEFT VENTRICULAR HYPERTROPHY : Confirmed by: Rosy Mcintosh MD 22-Jul-2019 20:14:10
== END 2019-07-22 18:55 | disposition home or self-care (01) ==
LOC: ER 13:30
DX: R45.851 Suicidal ideations (principal); F31.9 Bipolar disorder, unspecified; Z59.0 Homelessness; J45.909 Unspecified asthma, uncomplicated; I44.4 Left anterior fascicular block
CPT/HCPCS: 36415; 80053; 80307; 81001; 84703; 85025; 93005; 93010

== ENCOUNTER 2019-07-22 23:51 | Emergency (ER) | payer MEDICAID ==
--- NOTE | 2019-07-23 01:43 | ER Document Report ---
ED Medical Screen (RME) - General Chief Complaint: Chest Pain Stated Complaint: CHEST PAIN Time Seen by Provider: 07/23/19 01:39 Notes: Pt. voices she was sitting in the stock room when she started with 8/10 sharp left sided chest pain. +URI and asthma history but is denying SOB. denies fever. GENERAL: Alert, interacts well. No acute distress. LUNGS: Clear to auscultation bilaterally, no wheezes, rales, or rhonchi. No respiratory distress. HEART: Regular rate and rhythm. No murmur I have greeted and performed a rapid initial assessment of this patient. A comprehensive ED assessment and evaluation of the patient, analysis of test res ults and completion of the medical decision making process will be conducted by additional ED providers. I have specifically instructed the patient or family members with the patient to immediately return to any nursing staff should anything change in the patient's condition or with their chief complaint. TRAVEL OUTSIDE OF THE U.S. IN LAST 30 DAYS: No - Related Data Allergies/Adverse Reactions: No Known Allergies Allergy (Verified 02/21/19 14:35) Past Medical History Pulmonary Medical History: Reports: Hx Asthma Renal/ Medical History: Denies: Hx Peritoneal Dialysis Psychiatric Medical History: Reports: Hx Bipolar Disorder Past Surgical History: Reports: Hx Tubal Ligation Physical Exam - Vital signs Vitals: Temp Pulse Resp BP Pulse Ox 97.5 F 70 20 154/84 H 99 07/23/19 00:13 07/23/19 00:13 07/23/19 00:13 07/23/19 00:13 07/23/19 00:13 Course - Vital Signs Vital signs: Temp Pulse Resp BP Pulse Ox 97.5 F 70 20 154/84 H 99 07/23/19 00:13 07/23/19 00:13 07/23/19 00:13 07/23/19 00:13 07/23/19 00:13
--- NOTE | 2019-07-23 04:34 | RADIOLOGY REPORT (SQ) ---
EXAM DESCRIPTION: XR CHEST 2 VIEWS COMPLETED DATE/TME: 07/23/2019 01:40 CLINICAL HISTORY: 44 years, Female, cp COMPARISON: None. NUMBER OF VIEWS: 2 TECHNIQUE: Frontal and lateral views of the chest LIMITATIONS: None. FINDINGS: The heart size is normal. Lungs are clear. No pneumothorax IMPRESSION: Negative chest copyright 2010 [employer]- All Rights Reserved
[2019-07-23 07:25] LABS: ABSOLUTE EOSINOPHILS # (AUTO) 0.2 10^3/uL (0.0-0.6); ABSOLUTE LYMPHOCYTES (AUTO) 1.8 10^3/uL (0.5-4.7); ABSOLUTE MONOCYTES (AUTO) 0.3 10^3/uL (0.1-1.4); ABSOLUTE NEUT (AUTO) 2.7 10^3/uL (1.7-8.2); BASOPHILS % (AUTO) 0.9 % (0-2); EOSINOPHILS % (AUTO) 3.5 % (0-6); HEMOGLOBIN 12.3 g/dL (12.0-15.5); LYMPHOCYTES % (AUTO) 36.1 % (13-45); MEAN CORPUSCULAR HEMOGLOBIN 26.2 pg (27.0-33.4); MEAN CORPUSCULAR HGB CONC 33.3 g/dL (32.0-36.0); MEAN CORPUSCULAR VOLUME 79 fl (80-97); MONOCYTES % (AUTO) 6.7 % (3-13); PLATELET COUNT 278 10^3/uL (150-450); RED BLOOD COUNT 4.71 10^6/uL (3.72-5.28); SEGMENTED NEUTROPHILS % (AUTO) 52.8 % (42-78); TOTAL CELLS COUNTED % (AUTO) 100 %; WHITE BLOOD COUNT 5.1 10^3/uL (4.0-10.5)
[2019-07-23 07:49] LABS: ALKALINE PHOSPHATASE 56 U/L (38-126); ANION GAP 9 (5-19); ASPARTATE AMINO TRANSFERASE 40 U/L (14-36); BILIRUBIN,DIRECT 0.3 mg/dL (0.0-0.4); BILIRUBIN,TOTAL 0.6 mg/dL (0.2-1.3); BLOOD UREA NITROGEN 14 mg/dL (7-20); CALCIUM 9.1 mg/dL (8.4-10.2); CARBON DIOXIDE 22 mmol/L (22-30); CHLORIDE 110 mmol/L (98-107); CREATINE KINASE 69 U/L (30-135); GLUCOSE 108 mg/dL (75-110); POTASSIUM 4.5 mmol/L (3.6-5.0); TOTAL PROTEIN 7.8 g/dL (6.3-8.2)
--- NOTE | 2019-07-23 08:11 | ER Document Report ---
Entered by POONAM PRESCOTT SCRIBE 07/23/19 0713 Acting as scribe for:TYREE LAND IV, MD ED Cardiac - General Chief Complaint: Chest Pain Stated Complaint: CHEST PAIN Time Seen by Provider: 07/23/19 01:39 Mode of Arrival: Ambulatory Information source: Patient Notes: Patient is a homeless 44-year-old female with bipolar disorder that presents to the emergency department today complaining of chest pain. Patient was seen here yesterday for suicidal ideation which turned out to be simply the patient not having anywhere to live. Patient told nursing staff that it was "raining and cold outside so she decided to come in today for somewhere to stay". Patient st ates this chest pain comes and goes and has been present for six hours. Patient denies any personal or family history of cardiac disease. Patient appears to be very manipulative. TRAVEL OUTSIDE OF THE [place] IN LAST 30 DAYS: No - Related Data Allergies/Adverse Reactions: No Known Allergies Allergy (Verified 02/21/19 14:35) Home Medications: zoloft, abilify, albuterol Past Medical History - General Information source: Patient - Social History Smoking Status: Never Smoker Cigarette use (# per day): No Frequency of alcohol use: None Drug Abuse: None Lives with: Family Family History: Reviewed & Not Pertinent Patient has suicidal ideation: No Patient has homicidal ideation: No Pulmonary Medical History: Reports: Hx Asthma Psychiatric Medical History: Reports: Hx Bipolar Disorder Past Surgical History: Reports: Hx Tubal Ligation Review of Systems - Review of Systems Constitutional: No symptoms reported EENT: No symptoms reported Cardiovascular: See HPI, Chest pain Respiratory: No symptoms reported Gastrointestinal: No symptoms reported Genitourinary: No symptoms reported Female Genitourinary: No symptoms reported Musculoskeletal: No symptoms reported Skin: No symptoms reported Hematologic/Lymphatic: No symptoms reported Neurological/Psychological: No symptoms reported -: Yes All other systems reviewed and negative Physical Exam - Vital signs Vitals: Temp Pulse Resp BP Pulse Ox 97.5 F 70 20 154/84 H 99 07/23/19 00:13 07/23/19 00:13 07/23/19 00:13 07/23/19 00:13 07/23/19 00:13 - Notes Notes: Physical Exam: General: Alert, has all of her belongings with her in a wheelchair. HEENT: Normocephalic. Atraumatic. PERRL. Extraocular movements intact. Oroph arynx clear. Neck: Supple. Non-tender. Respiratory: No respiratory distress. Clear and equal breath sounds bilaterally. Cardiovascular: Regular rate and rhythm. Abdominal: Normal Inspection. Non-tender. No distension. Normal Bowel Sounds. Back: No gross abnormalities. Extremities: Moves all four extremities. Upper extremities: Normal inspection. Normal ROM. Lower extremities: Normal inspection. No edema. Normal ROM. Neurological: Normal cognition. AAOx4. Normal speech. Psychological: Depressed. Skin: Warm. Dry. Normal color. Course - Vital Signs Vital signs: Temp Pulse Resp BP Pulse Ox 98.1 F 70 25 H 126/71 H 98 07/23/19 07:01 07/23/19 00:13 07/23/19 07:01 07/23/19 07:01 07/23/19 07:18 - Laboratory Result Diagrams: 07/23/19 07:00 07/23/19 07:00 Laboratory results interpreted by me: 07/23/19 07/23/19 07:00 07:00 MCV 79 L MCH 26.2 L RDW 15.0 H Chloride 110 H AST 40 H - EKG Interpretation by Me Additional EKG results interpreted by me: 07/23/19 07:13 EKG performed at 07/23/2019 at 0147 hrs. was interpreted by this MD. Findings: Normal sinus rhythm, heart rate 68, normal axis, pes preceding QRS complexes, QRS complex appears narrow, no patterns of ST elevation or depression are obviously apparent to suggest myocardial ischemia or infarction. This EKG was compared to one performed on 07/22/2019 at 1405 hrs. Morphology is grossly similar and there are no significant changes between the 2 EKGs. Impression unremarkable EKG. Discharge - Discharge Clinical Impression: Acute chest pain Condition: Good Disposition: HOME, SELF-CARE Instructions: Chest Pain of Unclear Cause ([facility]) Referrals: MARKELL MELISSA MD [HONORARY] - Follow up as needed I personally performed the services described in the documentation, reviewed and edited the documentation which was dictated to the scribe in my presence, and it accurately records my words and actions.
[2019-07-23 08:35] VITALS: BP 142/87
--- NOTE | 2019-07-24 11:44 | EKG REPORT ---
SEVERITY:- ABNORMAL ECG - SINUS RHYTHM LEFT ANTERIOR FASCICULAR BLOCK LEFT VENTRICULAR HYPERTROPHY : Confirmed by: Rosy Mcintosh MD 24-Jul-2019 11:43:04
== END 2019-07-23 08:35 | disposition home or self-care (01) ==
LOC: ER 23:51
DX: R07.9 Chest pain, unspecified (principal); J45.909 Unspecified asthma, uncomplicated
CPT/HCPCS: 36415; 71046; 80053; 82550; 84484; 85025; 93005; 93010; 99285

== ENCOUNTER 2019-08-02 00:16 | Emergency (ER) | payer MEDICAID ==
[2019-08-02 00:28] VITALS: BP 156/100
[2019-08-02] MEDS ORDERED: KETOROLAC TROMETHAMINE 60 MG/2 ML SDV IM ONE (02:24)
--- NOTE | 2019-08-02 02:26 | ER Document Report ---
HPI - HPI Time Seen by Provider: 08/02/19 02:24 Pain Level: 4 Context: Patient is a 44-year-old female that comes to the emergency department for chief complaint of right hip pain. She states that this is been worsening for the past week, she states that she walks with a limp. Pain is over the side of her hip on the right, she denies back pain, she denies pain radiating down her leg. She denies injury to the area. She states she has had pain in the same leg in t he same place in the past but it resolved. She states she took ibuprofen and it helped but it did not resolve. She denies numbness, incontinence, abdominal pain, fever, IV drug abuse. Past medical history of anxiety/depression, on Zoloft and Abilify, denies any other medications. She states she had right ankle surgery in the past. - REPRODUCTIVE Reproductive: DENIES: : Past Medical History - General Information source: Patient - Social History Smoking Status: Never Smoker Frequency of alcohol use: None Drug Abuse: None Lives with: Family Family History: Reviewed & Not Pertinent Patient has suicidal ideation: No Patient has homicidal ideation: No Pulmonary Medical History: Reports: Hx Asthma Renal/ Medical History: Denies: Hx Peritoneal Dialysis Psychiatric Medical History: Reports: Hx Bipolar Disorder Past Surgical History: Reports: Hx Tubal Ligation - Immunizations Immunizations up to date: Yes Hx Diphtheria, Pertussis, Tetanus Vaccination: Yes Vertical Provider Document - CONSTITUTIONAL General Appearance: WD/WN, No Apparent Distress - INFECTION CONTROL TRAVEL OUTSIDE OF THE [place] IN LAST 30 DAYS: No - HEENT HEENT: Atraumatic, Normal ENT Exam, Normocephalic - NECK Neck: Normal Inspection - RESPIRATORY Respiratory: Breath Sounds Normal, No Respiratory Distress - CARDIOVASCULAR Cardiovascular: Regular Rate, Regular Rhythm. negative: Tachycardia - GI/ABDOMEN Gastrointestinal: Abdomen Soft, Abdomen Non-Tender. negative: Abdomen Tender - BACK Back: Normal Inspection - MUSCULOSKELETAL/EXTREMETIES Musculoskeletal/Extremeties: MAEW, FROM, Tender - There is some tenderness over the right bursa at the femoral head, this is specific, reproducible, and is worse with movement. However patient still has normal range of motion, normal distal neurovascular exam. She still able to ambulate without difficulty. Normal lower extremity and other extremity exam is otherwise - NEURO Level of Consciousness: Awake, Alert, Appropriate Motor/Sensory: No Motor Deficit, No Sensory Deficit Course - Re-evaluation Re-evalutation: X-ray of the hip is negative. Exam is consistent with bursitis. No tenderness of the abdomen or groin, no loss of range of motion or severe tenderness suggesting septic arthritis. No fever. No symptoms reported otherwise. Discussed work-up, recommendations, follow-up, and return precautions. Patient states understanding and agreement. - Vital Signs Vital signs: Temp Pulse Resp BP Pulse Ox 98.2 F 76 16 156/100 H 98 08/02/19 00:22 08/02/19 00:22 08/02/19 00:22 08/02/19 00:22 08/02/19 00:22 Discharge - Discharge Clinical Impression: Right hip pain Bursitis Qualifiers: Bursitis location: hip Hip bursitis location: unspecified Laterality: right Qualified Code(s): M70.71 - Other bursitis of hip, right hip Condition: Stable Disposition: HOME, SELF-CARE Additional Instructions: Your x-ray is normal. Your evaluation is consistent with bursitis. I recommend that you take the anti-inflammatory as prescribed, apply ice to the area, rest the area if possible. If symptoms continue he may need additional management including possible injection into the area by orthopedics. See referral listed below for follow-up. Return for any concerning symptoms including swelling, redness, severe worsening pain, numbness, fever, or any other concerning symptoms. Prescriptions: Naproxen 500 mg PO BID PRN #20 tablet PRN Reason: Referrals: RADHA VIGIL MD [ACTIVE STAFF] - Follow up as needed
--- NOTE | 2019-08-02 03:19 | RADIOLOGY REPORT (SQ) ---
CLINICAL HISTORY: pain for 1 week, limping COMPARISON: None. TECHNIQUE: XR HIP 2 OR MORE VIEWS 08/02/2019 2:24 AM EMERGENCY COMMUNICATIONS OPERATOR FINDINGS: There is no fracture. Joint spaces are preserved. Soft tissues are unremarkable. IMPRESSION: No acute osseous findings.
== END 2019-08-02 04:01 | disposition home or self-care (01) ==
LOC: ER 00:16
DX: M70.71 Other bursitis of hip, right hip (principal); M25.551 Pain in right hip; J45.909 Unspecified asthma, uncomplicated; F41.9 Anxiety disorder, unspecified; F31.9 Bipolar disorder, unspecified; Z79.899 Other long term (current) drug therapy
CPT/HCPCS: 99283; 96374; 73502; J1885

== ENCOUNTER 2019-08-03 08:13 | Emergency (ER) | payer MEDICAID ==
[2019-08-03] MEDS ORDERED: ONDANSETRON 4 MG TAB.RAPDIS PO ONE (08:40)
--- NOTE | 2019-08-03 09:02 | ER Document Report ---
ED General - General Chief Complaint: Nausea Stated Complaint: NAUSEA Time Seen by Provider: 08/03/19 08:35 Primary Care Provider: MAURO CRUMP DO [NO LOCAL MD] - Follow up in 3-5 days Notes: 44-year-old female presents with nausea since this morning. Patient denies anything making it worse or anything making it better. Patient states it is constant. Patient denies eating or eating anything different. Patient denies any vomiting, diarrhea, constipation abdominal pain, fever, chills, chest pain, dyspnea. TRAVEL OUTSIDE OF THE [place] IN LAST 30 DAYS: No - Related Data Allergies/Adverse Reactions: No Known Allergies Allergy (Verified 08/03/19 08:43) Past Medical History - Social History Smoking Status: Never Smoker Family History: Reviewed & Not Pertinent Patient has suicidal ideation: No Patient has homicidal ideation: No Pulmonary Medical History: Reports: Hx Asthma Renal/ Medical History: Denies: Hx Peritoneal Dialysis Psychiatric Medical History: Reports: Hx Bipolar Disorder Past Surgical History: Reports: Hx Tubal Ligation - Immunizations Immunizations up to date: Yes Hx Diphtheria, Pertussis, Tetanus Vaccination: Yes Review of Systems - Review of Systems Notes: Constitutional: Negative for fever. HENT: Negative for sore throat. Eyes: Negative for visual changes. Cardiovascular: Negative for chest pain. Respiratory: Negative for shortness of breath. Gastrointestinal: Positive for nausea. Negative for abdominal pain, vomiting or diarrhea. Genitourinary: Negative for dysuria. Musculoskeletal: Negative for back pain. Skin: Negative for rash. Neurological: Negative for headaches, weakness or numbness. 10 point ROS negative except as marked above and in HPI. Physical Exam - Vital signs Vitals: Temp Pulse Resp BP Pulse Ox 98.0 F 75 18 152/86 H 98 08/03/19 08:17 08/03/19 08:17 08/03/19 08:17 08/03/19 08:17 08/03/19 08:17 - Notes Notes: GENERAL: Well-appearing, well-nourished and in no acute distress. HEAD: Atraumatic, normocephalic. EYES: Extraocular movements intact, sclera anicteric, conjunctiva are normal. NECK: Normal range of motion, supple without lymphadenopathy or JVD. LUNGS: Breath sounds clear to auscultation bilaterally and equal. No wheezes rales or rhonchi. HEART: Regular rate and rhythm without murmurs, rubs or gallops. ABDOMEN: Soft, nontender. No guarding, no rebound. No masses appreciated. EXTREMITIES: Normal range of motion, no pitting or edema. No clubbing or cyanosis. NEUROLOGICAL: Cranial nerves II through XII grossly intact. Normal speech, normal gait. PSYCH: Normal mood, normal affect. SKIN: Warm, Dry, normal turgor, no rashes or lesions noted. Moist mucous mem branes. Course - Re-evaluation Re-evalutation: 08/03/19 44-year-old female presents with nausea without vomiting, abdominal pain, diarrhea/constipation. Patient is nontoxic and well-appearing. Vitals are acceptable with no tachycardia, no hypoxia, no tachypnea. Abdomen soft nontender. PE is otherwise unremarkable. UA and Urine test ordered. No other labs or imaging warranted at this time based upon H&P. Zofran ordered and will p.o. challenge 20 to 30 minutes after being given. 08/03/19 09:22 Upreg negative. 08/03/19 09:26 UA shows 16 squamous epithelial cells and 4 WBC. Will not treat. 08/03/19 09:36 PO challenge passed. - Vital Signs Vital signs: Temp Pulse Resp BP Pulse Ox 98.0 F 75 18 152/86 H 98 08/03/19 08:17 08/03/19 08:17 08/03/19 08:17 08/03/19 08:17 08/03/19 08:17 - Laboratory Laboratory results interpreted by me: 08/03/19 09:03 Leukocyte Esterase Rfl TRACE H Discharge - Discharge Clinical Impression: Nausea Condition: Stable Disposition: HOME, SELF-CARE Instructions: Nausea or Vomiting, Nonspecific ([facility]) Additional Instructions: You have been seen in the Emergency Department (ED) today for nausea. Your work up today has not shown a clear cause for your symptoms. You have been prescribed Zofran; please use as prescribed as needed for your nausea. Follow up with your doctor or clinic listed as soon as possible regarding today's emergent visit and your symptoms of nausea. Return to the Emergency Department (ED) if you develop abdominal pain, bloody vomiting, bloody diarrhea, if you are unable to tolerate fluids due to vomiting, or if you develop other symptoms that concern you. Referrals: MAURO CRUMP DO [NO LOCAL MD] - Follow up in 3-5 days
[2019-08-03 09:22] LABS: APPEARANCE,URINE SLIGHTLY-CLOUDY; BILIRUBIN,URINE NEGATIVE (NEGATIVE); COLOR,URINE YELLOW; GLUCOSE, URINE NEGATIVE (NEGATIVE); KETONES,URINE NEGATIVE (NEGATIVE); PROTEIN,URINE NEGATIVE (NEGATIVE); URINE SPECIFIC GRAVITY 1.027; UROBILINOGEN,URINE NEGATIVE mg/dL (<2.0)
[2019-08-03] MEDS ORDERED: ONDANSETRON ODT 4 MG TAB (6 TAB/ER DISP) PO PRN (09:37)
[2019-08-03 09:54] VITALS: BP 144/82
== END 2019-08-03 09:56 | disposition home or self-care (01) ==
LOC: ER 08:13
DX: R11.0 Nausea (principal); Z98.51 Tubal ligation status
CPT/HCPCS: 99283; 81025; 81001; S0119

== ENCOUNTER 2019-08-16 11:42 | Emergency (ER) | payer MEDICAID ==
[2019-08-16] MEDS ORDERED: IBUPROFEN 800 MG TABLET PO ONE (13:14)
--- NOTE | 2019-08-16 13:20 | ER Document Report ---
ED Extremity Problem, Lower - General Chief Complaint: Ankle Pain Stated Complaint: RIGHT ANKLE PAIN Time Seen by Provider: 08/16/19 13:10 Primary Care Provider: [facility] [Provider Group] - Follow up as needed Mode of Arrival: Wheelchair Information source: Patient Notes: 44-year-old female presented to ED for complaint of right ankle pain since yesterday. She states she was walking and she thinks she twisted. She states she has had foot previous fractures to this ankle. She states she does have a history of bipolar explosive disorders asthma and a fracture of the ankle. She has had a bilateral tubal ligation wisdom teeth removed. She states she just finished her last menstrual cycle today. She does not smoke rarely drinks and does not use any illicit drugs. TRAVEL OUTSIDE OF THE [place] IN LAST 30 DAYS: No - HPI Patient complains to provider of: Injury, Pain, Swelling Location: Ankle, Foot Occurred: Yesterday Where: Home, Indoors Onset/Duration: Gradual, Persistent Severity: Moderate Pain Level: 4 Context: Twisted Recent injury: Possibly Associated symptoms: Painful ambulation Exacerbated by: Movement, Walking Relieved by: Nothing - Related Data Allergies/Adverse Reactions: No Known Allergies Allergy (Verified 08/03/19 08:43) Past Medical History - General Information source: Patient - Social History Smoking Status: Never Smoker Frequency of alcohol use: Rare Lives with: Family Family History: Reviewed & Not Pertinent Patient has suicidal ideation: No Patient has homicidal ideation: No - Past Medical History Cardiac Medical History: Reports: None Pulmonary Medical History: Reports: Hx Asthma EENT Medical History: Reports: None Neurological Medical History: Reports: None Endocrine Medical History: Reports: None Renal/ Medical History: Reports: None Malignancy Medical History: Reports: None GI Medical History: Reports: None Musculoskeletal Medical History: Reports Hx Musculoskeletal Trauma Skin Medical History: Reports None Psychiatric Medical History: Reports: Hx Bipolar Disorder, Other - Spells of di sorder Traumatic Medical History: Reports: Hx Fractures - Right ankle Infectious Medical History: Reports: None Past Surgical History: Reports: Hx Oral Surgery - [place] teeth, Hx Tubal Ligation - Immunizations Immunizations up to date: Yes Hx Diphtheria, Pertussis, Tetanus Vaccination: Yes Review of Systems - Review of Systems Constitutional: No symptoms reported EENT: No symptoms reported Cardiovascular: No symptoms reported Respiratory: No symptoms reported Gastrointestinal: No symptoms reported Genitourinary: No symptoms reported Female Genitourinary: No symptoms reported Musculoskeletal: Joint pain, Ankle swelling - Right ankle and foot pain and swelling Skin: No symptoms reported Hematologic/Lymphatic: No symptoms reported Neurological/Psychological: No symptoms reported -: Yes All other systems reviewed and negative Physical Exam - Vital signs Vitals: Temp Pulse Resp BP Pulse Ox 97.4 F 70 20 141/88 H 98 08/16/19 12:28 08/16/19 12:28 08/16/19 12:28 08/16/19 12:28 08/16/19 12:28 Interpretation: Normal - General General appearance: Appears well, Alert - HEENT Head: Normocephalic, Atraumatic Eyes: Normal Pupils: PERRL - Respiratory Respiratory status: No respiratory distress Chest status: Nontender Breath sounds: Normal Chest palpation: Normal - Cardiovascular Rhythm: Regular Heart sounds: Normal auscultation Murmur: No - Abdominal Inspection: Normal Distension: No distension Bowel sounds: Normal Tenderness: Nontender Organomegaly: No organomegaly - Back Back: Normal, Nontender - Extremities General upper extremity: Normal inspection, Nontender, Normal color, Normal ROM, Normal temperature General lower extremity: Normal temperature. No: Raphael's sign Ankle: Tender, Ecchymosis, Edema, Limited ROM - Due to pain. No: Instability, Laceration, Positive Ro's test, Unable to bear weight Foot: Tender, Ecchymosis, Edema - Neurological Neuro grossly intact: Yes Cognition: Normal Orientation: AAOx4 [place] Coma Scale Eye Opening: Spontaneous Gabi Coma Scale Verbal: Oriented [place] Coma Scale Motor: Obeys Commands Gabi Coma Scale Total: 15 Speech: Normal Motor strength normal: LUE, RUE, LLE, RLE Sensory: Normal - Psychological Associated symptoms: Normal affect, Normal mood - Skin Skin Temperature: Warm Skin Moisture: Dry Skin Color: Normal Course - Re-evaluation Re-evalutation: 08/16/19 22:31 The patient is nontoxic appearing with stable vitals. They are afebrile. Ankle exam shows no deformities with no obvious ligament instability. There is a normal pulse and sensation distally. There is no redness or signs of infection. X-rays show no acute fracture per the radiologist. Patient will be placed in an Yves wrap for comfort. Crutches will be offered and given if requested. Patient will be instructed to follow-up with not better in 1 week, sooner for increasing pain, fever, redness, numbness, tingling, weakness, any further concerns. Patient will be instructed to rest, ice, elevate their ankle. - Vital Signs Vital signs: Temp Pulse Resp BP Pulse Ox 98.2 F 105 H 18 129/80 H 100 08/16/19 15:04 08/16/19 15:04 08/16/19 15:04 08/16/19 15:04 08/16/19 15:04 - Diagnostic Test Radiology reviewed: Image reviewed, Reports reviewed Procedures - Immobilization Right Ankle Time completed: 15:40 Immobilizer type: Yves wrap, Ankle stirrup, Crutches Performed by: PCT Post-Proc Neuro Vasc Exam: Normal Alignment checked and good: Yes Discharge - Discharge Clinical Impression: Right ankle sprain Qualifiers: Encounter type: initial encounter Involved ligament of ankle: unspecified ligament Qualified Code(s): S93.401A - Sprain of unspecified ligament of right ankle, initial encounter Condition: Stable Disposition: HOME, SELF-CARE Additional Instructions: SPRAINED ANKLE: Your sprained ankle results from stretching or tearing of the ligaments which support the ankle. This usually results from twisting the foot inward and under. The ligaments will require time and protection in order to heal properly. Many ankle sprains are quite disabling, and should be taken seriously. The usual treatment for an ankle sprain is cold packs; protection with tape, splints, or wraps; elevation; and staying off the ankle for at least a day. As the ankle improves, you can walk IF it's not painful to bear weight. Sports are best postponed until healing is complete. More serious sprains usually require strengthening exercises after early healing. Your physician has assessed the seriousness of the ligament injury to your ankle. However, the treatment may change, depending on how your ankle progresses. If further exams were recommended, it is important that you follow through. Call the doctor if your foot becomes numb, painful, or severely swollen. YVES WRAP: A compression dressing (yves wrap) has been placed. This helps hold the are a still. It limits swelling and internal bleeding. The wrap should be comfortably snug -- not tight. You should feel a sense of pressure, but not severe pain under the wrap. Unless the physician tells you otherwise, you can adjust the wrap for comfort. If the wrap causes symptoms suggesting it's too tight -- uncomfortable pressure, swelling or discoloration beyond the wrap, numbness, or severe pain -- you must loosen the wrap. If these symptoms don't resolve promptly, return for re-evaluation. ANKLE STIRRUP SPLINT: You are to use an ankle brace called a stirrup splint. This type of brace allows you to place greater stresses on the ankle without risk of re-injury, and is often used for more severe ankle injuries such as avulsion fractures and ligament ruptures. The splint can be worn over a sock or tape. For proper support, wear the splint with a shoe over it. It's important that the splint fit properly. Adjust the heel tension, if needed. If your splint has air bladders, peel back the bottom of each air bladder, then move the Velcro attachment of the heel strap up or down. Air bladder pressure can be adjusted by pulling up the valve at the top, threading the air tube down into the main bladder, then blowing air into the bladder or squeezing it out. The two sides of the stirrup can be moved forward or back on your ankle by changing the attachment of the main straps. If you are unable to use the ankle comfortably in the splint, return for re-evaluation. USE OF CRUTCHES: The doctor has recommended that you not bear weight at this time. You will need to use crutches. Adjust the crutches so the tops come to about two inches under the armpit while you are standing upright. Use your hands -- not your armpits -- to support your weight. To get into a chair, support yourself with one crutch on the injured side. Hold the chair with the other hand, then lower yourself while putting all your weight on the good leg. Going up stairs is `good leg up, step up, then bring up crutches and bad leg.' Down stairs is `bad leg and crutches down, then bring good leg down.' If you develop numbness or swelling in an arm or hand, you are using the crutches incorrectly. Return if you are having any problems with the crutches. ICE & ELEVATION: Apply ice packs frequently against the painful area. Many different sc hedules are recommended, such as "20 minutes on, 20 minutes off" or "one hour ice, two hours rest." If you need to work, you may need to go longer between ice treatments. You should plan to have the area ice packed AT LEAST one-fourth of the time. The ice should be applied over the wrap, tape, or splint, or over a layer of cloth -- not directly against the skin. Some ice bags have a built-in cloth and can be put directly on the skin. Your injured part should be elevated as much as possible over the next 48 hours. Try to keep the injury above the level of the heart. Avoid use of the injured area. Elevation and rest will decrease the swelling. USE OF [id number] IBUPROFEN: Ibuprofen (Advil, Nuprin, Medipren, Motrin IB) is a medication for fever and pain control. In addition, it has anti- inflammatory effects which may be beneficial, especially in the treatment of injuries. It's best to take ibuprofen with food. Persons with ulcer disease or allergy to aspirin should notify their physician of this before taking ibuprofen. Ibuprofen can be given every four to six hours, for a total of four doses daily. Age Pain or fever dose Antiinflammatory dose 6-8 yr 200 mg (1 tab) 200 mg (1 tab) 9-11 yr 200 mg (1 tab) 200-400 mg (1-2 tab) 11-14 yr 200-400 mg (1-2 tab) 400 mg (2 tab) 15-adult 400 mg (2 tab) 600 mg (3 tab) FOLLOW-UP CARE: If you have been referred to a physician for follow-up care, call the physicians office for an appointment as you were instructed or within the next two days. If you experience worsening or a significant change in your symptoms, notify the physician immediately or return to the Emergency Department at any time for re-evaluation. Forms: Elevated Blood Pressure, Return to Work Referrals: [facility] [Provider Group] - Follow up as needed
--- NOTE | 2019-08-16 14:42 | RADIOLOGY REPORT (SQ) ---
EXAM DESCRIPTION: ANKLE RIGHT COMPLETE COMPLETED DATE/TIME: 08/16/2019 2:04 pm REASON FOR STUDY: pain twisted COMPARISON: None. NUMBER OF VIEWS: Three views. TECHNIQUE: AP, lateral, and oblique radiographic images acquired of the right ankle. LIMITATIONS: None. FINDINGS: MINERALIZATION: Normal. BONES: No definite acute fracture. Corticated ossific densities inferior to the medial and lateral m alleoli favored to relate to degenerative change remote trauma. JOINTS: No dislocation. SOFT TISSUES: Soft tissue swelling about the ankle. OTHER: No other significant finding. IMPRESSION: Soft tissue swelling about the ankle without definite acute bony abnormality. Corticate d ossific densities inferior to the medial and lateral malleoli favored to represent chronic degenera tive/posttraumatic change. TECHNICAL DOCUMENTATION: JOB ID: [id number] [employer]- All Rights Reserved Reading location - IP/workstation name: [email or web address]
--- NOTE | 2019-08-16 14:43 | RADIOLOGY REPORT (SQ) ---
EXAM DESCRIPTION: FOOT RIGHT COMPLETE COMPLETED DATE/TIME: 08/16/2019 2:04 pm REASON FOR STUDY: pain and swelling with injury COMPARISON: None. NUMBER OF VIEWS: Three views. TECHNIQUE: AP, lateral and oblique radiographic images acquired of the right foot. LIMITATIONS: None. FINDINGS: MINERALIZATION: Normal. BONES: No definite acute fracture or dislocation. Corticated ossific densities inferior to the media l and lateral malleoli favored to represent chronic change. Small trigonal process. JOINTS: No dislocation. SOFT TISSUES: Soft tissue swelling about the ankle. OTHER: No other significant finding. IMPRESSION: Soft tissue swelling about the foot and ankle without evidence definite bony abnormality . TECHNICAL DOCUMENTATION: JOB ID: [id number] [employer]- All Rights Reserved Reading location - IP/workstation name: [email or web address]
[2019-08-16 15:05] VITALS: BP 129/80
== END 2019-08-16 15:07 | disposition home or self-care (01) ==
LOC: ER 11:42
DX: S93.401A Sprain of unspecified ligament of right ankle, initial encounter (principal); M25.571 Pain in right ankle and joints of right foot; X58.XXXA Exposure to other specified factors, initial encounter; M79.671 Pain in right foot; M79.89 Other specified soft tissue disorders; R58 Hemorrhage, not elsewhere classified; J45.909 Unspecified asthma, uncomplicated; Z87.81 Personal history of (healed) traumatic fracture
CPT/HCPCS: 99283; 73610; 73630; L4350; J3490

== ENCOUNTER 2019-08-16 22:31 | Emergency (ER) | payer MEDICAID ==
[2019-08-17 02:49] LABS: ABSOLUTE EOSINOPHILS # (AUTO) 0.2 10^3/uL (0.0-0.6); ABSOLUTE LYMPHOCYTES (AUTO) 2.2 10^3/uL (0.5-4.7); ABSOLUTE MONOCYTES (AUTO) 0.4 10^3/uL (0.1-1.4); ABSOLUTE NEUT (AUTO) 1.8 10^3/uL (1.7-8.2); BASOPHILS % (AUTO) 0.7 % (0-2); HEMATOCRIT 32.1 % (36.0-47.0); HEMOGLOBIN 10.9 g/dL (12.0-15.5); LYMPHOCYTES % (AUTO) 48.5 % (13-45); MEAN CORPUSCULAR HGB CONC 34.1 g/dL (32.0-36.0); MEAN CORPUSCULAR VOLUME 79 fl (80-97); PLATELET COUNT 256 10^3/uL (150-450); RED BLOOD COUNT 4.06 10^6/uL (3.72-5.28); RED CELL DISTRIBUTION WIDTH 16.6 % (11.5-14.0); SEGMENTED NEUTROPHILS % (AUTO) 38.8 % (42-78); TOTAL CELLS COUNTED % (AUTO) 100 %; WHITE BLOOD COUNT 4.6 10^3/uL (4.0-10.5)
[2019-08-17 02:55] LABS: APPEARANCE,URINE TURBID; BILIRUBIN,URINE NEGATIVE (NEGATIVE); COLOR,URINE YELLOW; GLUCOSE, URINE NEGATIVE (NEGATIVE); KETONES,URINE NEGATIVE (NEGATIVE); LEUKOCYTE ESTERASE,URINE TRACE (NEGATIVE); NITRITE,URINE NEGATIVE (NEGATIVE); PROTEIN,URINE 30 mg/dL (NEGATIVE); URINE SPECIFIC GRAVITY 1.035
[2019-08-17 03:07] LABS: ALBUMIN 3.6 g/dL (3.5-5.0); ALKALINE PHOSPHATASE 61 U/L (38-126); ANION GAP 9 (5-19); ASPARTATE AMINO TRANSFERASE 18 U/L (14-36); BILIRUBIN,DIRECT 0.1 mg/dL (0.0-0.4); BILIRUBIN,TOTAL 0.3 mg/dL (0.2-1.3); BLOOD UREA NITROGEN 15 mg/dL (7-20); CALCIUM 9.1 mg/dL (8.4-10.2); CARBON DIOXIDE 26 mmol/L (22-30); CHLORIDE 111 mmol/L (98-107); GLUCOSE 114 mg/dL (75-110); POTASSIUM 3.7 mmol/L (3.6-5.0); TOTAL PROTEIN 6.6 g/dL (6.3-8.2)
[2019-08-17 03:08] LABS: ACETAMINOPHEN < 10 ug/mL (10-30); ALCOHOL < 10 mg/dL (NONE DETECTED); SALICYLATE < 1.0 mg/dL (2.0-20.0)
[2019-08-17 03:14] LABS: URINE AMPHETAMINES SCREEN NEGATIVE; URINE BARBITURATES SCREEN NEGATIVE; URINE BENZODIAZEPINES SCREEN NEGATIVE; URINE COCAINE SCREEN NEGATIVE; URINE MARIJUANA (THC) SCREEN NEGATIVE; URINE METHADONE SCREEN NEGATIVE; URINE PHENCYCLIDINE SCREEN NEGATIVE
--- NOTE | 2019-08-17 04:40 | ER Document Report ---
ED Psych Disorder / Suicide - General Chief Complaint: Suicidal Ideation Stated Complaint: BACK PIN Time Seen by Provider: 08/17/19 03:29 Notes: Patient is a 44-year-old female that comes to the emergency department for chief complaint of feeling depressed and suicidal. She states for the past 2 days she has been frustrated because she has no vertigo, she states her boyfriend is staying with his boss and she is alone, she states that her mother refuses to help her out, she states that she has been thinking about "cutting up my wrists with something sharp". She denies history of suicide attempts. She reports past medical history of bipolar/anxiety/depression, she states that she is supposed to be on Abilify and Zoloft but she states that she has been out of these for months because she cannot afford them. She denies any other medical history. She was seen here earlier today for an ankle injury, she told triage she had back pain reportedly, however she denies any pain or complaints other than feeling depressed and suicidal. She denies homicidal ideations. TRAVEL OUTSIDE OF THE [place] IN LAST 30 DAYS: No - Related Data Allergies/Adverse Reactions: No Known Allergies Allergy (Verified 08/17/19 00:50) Past Medical History - General Information source: Patient - Social History Smoking Status: Never Smoker Frequency of alcohol use: None Drug Abuse: None Lives with: Family Family History: Reviewed & Not Pertinent Patient has suicidal ideation: Yes Patient has homicidal ideation: Yes Pulmonary Medical History: Reports: Hx Asthma Musculoskeletal Medical History: Reports Hx Musculoskeletal Trauma Psychiatric Medical History: Reports: Hx Bipolar Disorder Traumatic Medical History: Reports: Hx Fractures - Right ankle Past Surgical History: Reports: Hx Oral Surgery - [place] teeth, Hx Tubal Ligation - Immunizations Immunizations up to date: Yes Hx Diphtheria, Pertussis, Tetanus Vaccination: Yes Review of Systems - Review of Systems Constitutional: No symptoms reported EENT: No symptoms reported Cardiovascular: No symptoms reported Respiratory: No symptoms reported Gastrointestinal: No symptoms reported Genitourinary: No symptoms reported Female Genitourinary: No symptoms reported Musculoskeletal: No symptoms reported Skin: No symptoms reported Hematologic/Lymphatic: No symptoms reported Neurological/Psychological: See HPI Physical Exam - Vital signs Vitals: Temp Resp Pulse Ox 97.9 F 20 96 08/16/19 22:31 08/16/19 22:31 08/16/19 22:31 - Notes Notes: GENERAL: Alert, interacts well. No acute distress. Sleeping and easily aroused HEAD: Normocephalic, atraumatic. EYES: Pupils equal, round, and reactive to light. Extraocular movements intact. ENT: Oral mucosa moist, tongue midline. Oropharynx unremarkable. Airway patent. NECK: Full range of motion. Supple. Trachea midline. LUNGS: Clear to auscultation bilaterally, no wheezes, rales, or rhonchi. No respiratory distress. HEART: Regular rate and rhythm. No murmur ABDOMEN: Soft, non-tender. Non-distended. EXTREMITIES: Moves all 4 extremities spontaneously. No edema, normal radial and dorsalis pedis pulses bilaterally. No cyanosis. BACK: no cervical, thoracic, lumbar midline tenderness. No saddle anesthesia, normal distal neurovascular exam. Moves all extremities in full range of motion. NEUROLOGICAL: Alert and oriented x3. Normal speech. Cranial nerves II through XII grossly intact. PSYCH: Slightly flat affect, comprehension appears to be low SKIN: Warm, dry, normal turgor. No rashes or lesions noted. Course - Re-evaluation Re-evalutation: Patient reporting she is off her medications, reporting suicidal ideations with a plan of cutting her wrists open. She may have a component of mental retardation as well. She is here by herself at this time. CBC shows some iron deficiency anemia, chemistry unremarkable, urine shows elevated specific gravity but is otherwise unremarkable. EKG, remaining work-up unremarkable. Patient has already been evaluated for her ankle earlier and is not complaining about her ankle at this time. Discussed with Dr. Crisostomo. Patient is medically cleared, evaluation by mental health team is pending. Patient does state understanding and agreement with this plan. - Vital Signs Vital signs: Temp Pulse Resp BP Pulse Ox 97.9 F 79 20 137/74 H 96 08/16/19 22:37 08/16/19 22:37 08/16/19 22:37 08/16/19 22:37 08/16/19 22:37 - Laboratory Result Diagrams: 08/17/19 01:55 08/17/19 01:55 Laboratory results interpreted by me: 08/17/19 08/17/19 08/17/19 01:35 01:55 01:55 Hgb 10.9 L Hct 32.1 L MCV 79 L RDW 16.6 H Lymph % (Auto) 48.5 H Seg Neutrophils % 38.8 L Sodium 145.6 H Chloride 111 H Glucose 114 H Urine Protein 30 H Urine Urobilinogen 2.0 H Ur Leukocyte Esterase TRACE H Urine Ascorbic Acid 20 H Salicylates < 1.0 L Acetaminophen < 10 L Discharge - Discharge Clinical Impression: Suicidal ideations, Homelessness Condition: Stable Disposition: PSYCH HOSP/UNIT
--- NOTE | 2019-08-17 07:08 | EKG REPORT ---
SEVERITY:- ABNORMAL ECG - SINUS RHYTHM NONSPECIFIC IVCD WITH LAD = LAFB LEFT VENTRICULAR HYPERTROPHY LATERAL INFARCT, OLD : Confirmed by: Hilario Jensen MD 17-Aug-2019 07:07:32
[2019-08-17 11:22] VITALS: BP 134/87
--- NOTE | 2019-08-17 12:39 | ER Document Report ---
Doctor's Note Notes: 08/17/19 12:36 I went and assessed the patient with Dr. Piña, supervising physician, after being told that the patient's director regulatory compliance is here and behavioral health wanted to discharge her. I have concerns about discharging her so soon because she was still stating that she had suicidal ideations with a plan, but without the means. She was hopeful and had positive influences with her kid but is homeless and is essentially being discharged to the street with only the potential to get a bed at [facility]. Patient has been seen here twice before for the same chief complaint with the same plan but never carried through. Other concern is that patient also might have mild MR is difficult to ascertain if she is able to make logical decisions. Dr. Piña deemed that the patient was stable enough for discharge based on a lengthy conversation with the patient. As the rounding provider this AM, I assessed the patient's labs, vitals, and records. Patient is cleared for disposition by psychiatry. It appears the patient is medically stable for transfer or discharge and mental health wishes to discharge patient with close follow-up services in place.
== END 2019-08-17 11:19 | disposition home or self-care (01) ==
LOC: ER 22:31
DX: R45.851 Suicidal ideations (principal); R45.850 Homicidal ideations; Z59.0 Homelessness; J45.909 Unspecified asthma, uncomplicated; D50.9 Iron deficiency anemia, unspecified
CPT/HCPCS: 36415; 80053; 80307; 81001; 84703; 85025; 93005; 93010; 99285

== ENCOUNTER 2020-07-17 14:02 | Emergency (ER) | payer MEDICAID ==
--- NOTE | 2020-07-17 15:10 | ER Document Report ---
ED Medical Screen (RME) - General Stated Complaint: SI Time Seen by Provider: 07/17/20 15:08 Mode of Arrival: Ambulatory Information source: Patient Notes: 45 old female patient with history of depression, anxiety, bipolar and intermittent explosive disorder presenting to the emergency department with suicidal ideations. Patient reports symptoms ongoing for the last few days. She states she plans to cut herself. She states she has been off her mental health medications for 3 weeks due to the expense. She states she was doing better when she was on her medications. She is accompanied by mobile crisis outside energy sales representatives. Patient is calm, cooperative, flat affect. Apparently there is a bed available for her at [facility] but not until 6 PM. I have greeted and performed a rapid initial assessment of this patient. A comprehensive ED assessment and evaluation of the patient, analysis of test results and completion of the medical decision making process will be conducted by additional ED providers. I have specifically instructed the patient or family members with the patient to immediately return to any nursing staff should anything change in the patient's condition or with their chief complaint. TRAVEL OUTSIDE OF THE [place] IN LAST 30 DAYS: No - Related Data Allergies/Adverse Reactions: No Known Allergies Allergy (Verified 04/06/20 16:31) Past Medical History Pulmonary Medical History: Reports: Hx Asthma Endocrine Medical History: Reports: Hx Diabetes Mellitus Type 2 Musculoskeltal Medical History: Reports Hx Musculoskeletal Trauma Psychiatric Medical History: Reports: Hx Bipolar Disorder Traumatic Medical History: Reports: Hx Fractures - Right ankle Past Surgical History: Reports: Hx Oral Surgery - [place] teeth, Hx Tubal Ligation - Immunizations Immunizations up to date: Yes Hx Diphtheria, Pertussis, Tetanus Vaccination: Yes Physical Exam - Vital signs Vitals: Temp Pulse Resp BP Pulse Ox 98.5 F 73 18 151/99 H 100 07/17/20 14:28 07/17/20 14:28 07/17/20 14:28 07/17/20 14:28 07/17/20 14:28 Course - Vital Signs Vital signs: Temp Pulse Resp BP Pulse Ox 98.5 F 73 18 151/99 H 100 07/17/20 14:28 07/17/20 14:28 07/17/20 14:28 07/17/20 14:28 07/17/20 14:28
[2020-07-17 15:48] LABS: ABSOLUTE BASOPHILS # (AUTO) 0.1 10^3/uL (0.0-0.2); ABSOLUTE EOSINOPHILS # (AUTO) 0.1 10^3/uL (0.0-0.6); ABSOLUTE LYMPHOCYTES (AUTO) 1.7 10^3/uL (0.5-4.7); ABSOLUTE MONOCYTES (AUTO) 0.4 10^3/uL (0.1-1.4); ABSOLUTE NEUT (AUTO) 3.8 10^3/uL (1.7-8.2); BASOPHILS % (AUTO) 0.8 % (0-2); HEMATOCRIT 38.5 % (36.0-47.0); HEMOGLOBIN 13.1 g/dL (12.0-15.5); LYMPHOCYTES % (AUTO) 27.9 % (13-45); MEAN CORPUSCULAR HEMOGLOBIN 27.4 pg (27.0-33.4); MEAN CORPUSCULAR HGB CONC 34.1 g/dL (32.0-36.0); MEAN CORPUSCULAR VOLUME 80 fl (80-97); MONOCYTES % (AUTO) 5.9 % (3-13); PLATELET COUNT 285 10^3/uL (150-450); RED CELL DISTRIBUTION WIDTH 14.9 % (11.5-14.0); SEGMENTED NEUTROPHILS % (AUTO) 63.4 % (42-78); TOTAL CELLS COUNTED % (AUTO) 100 %; WHITE BLOOD COUNT 6.1 10^3/uL (4.0-10.5)
[2020-07-17 16:15] LABS: ALBUMIN 4.3 g/dL (3.5-5.0); ALKALINE PHOSPHATASE 79 U/L (38-126); ANION GAP 12 (5-19); ASPARTATE AMINO TRANSFERASE 22 U/L (14-36); BILIRUBIN,DIRECT 0.1 mg/dL (0.0-0.4); BILIRUBIN,TOTAL 0.4 mg/dL (0.2-1.3); BLOOD UREA NITROGEN 15 mg/dL (7-20); CALCIUM 9.7 mg/dL (8.4-10.2); CARBON DIOXIDE 22 mmol/L (22-30); CHLORIDE 106 mmol/L (98-107); GLUCOSE 99 mg/dL (75-110); POTASSIUM 4.1 mmol/L (3.6-5.0); TOTAL PROTEIN 7.5 g/dL (6.3-8.2)
[2020-07-17 16:20] LABS: ACETAMINOPHEN < 10 ug/mL (10-30); ALCOHOL < 10 mg/dL (NONE DETECTED); SALICYLATE < 1.0 mg/dL (2.0-20.0)
[2020-07-17 16:22] LABS: APPEARANCE,URINE CLEAR; BILIRUBIN,URINE NEGATIVE (NEGATIVE); COLOR,URINE YELLOW; GLUCOSE, URINE NEGATIVE (NEGATIVE); KETONES,URINE NEGATIVE (NEGATIVE); LEUKOCYTE ESTERASE,URINE NEGATIVE (NEGATIVE); NITRITE,URINE NEGATIVE (NEGATIVE); PROTEIN,URINE NEGATIVE (NEGATIVE); URINE SPECIFIC GRAVITY 1.019; UROBILINOGEN,URINE NEGATIVE mg/dL (<2.0)
[2020-07-17 16:24] LABS: URINE AMPHETAMINES SCREEN NEGATIVE; URINE BARBITURATES SCREEN NEGATIVE; URINE BENZODIAZEPINES SCREEN NEGATIVE; URINE COCAINE SCREEN NEGATIVE; URINE MARIJUANA (THC) SCREEN NEGATIVE; URINE METHADONE SCREEN NEGATIVE; URINE PHENCYCLIDINE SCREEN NEGATIVE
--- NOTE | 2020-07-17 16:37 | ER Document Report ---
ED General <BLANCA HARRY - Last Filed: 07/17/20 18:43> - General Mode of Arrival: Ambulatory Information source: Patient TRAVEL OUTSIDE OF THE [place] IN LAST 30 DAYS: No <MICKI BAUTISTA - Last Filed: 07/17/20 19:32> - General Chief Complaint: Psych Problem Stated Complaint: SI Time Seen by Provider: 07/17/20 15:08 Primary Care Provider: [facility] [Outside] - Follow up as needed Notes: Patient is a 45-year-old female coming in today with depression and suicidal ideation. Plans to cut herself. History of same in the past. History of bipolar disease. Not taking medications. She contacted her field nurse case manager who was subsequently consulted the mobile crisis team. She is here to be assessed by our behavioral health department. Patient is anticipating admission into the [facility] program (MICKI BAUTISTA) - Related Data Allergies/Adverse Reactions: No Known Allergies Allergy (Verified 04/06/20 16:31) Past Medical History - General Information source: Patient - Social History Smoking Status: Current Every Day Smoker Chew tobacco use (# tins/day): No Frequency of alcohol use: None Family History: Reviewed & Not Pertinent Pulmonary Medical History: Reports: Hx Asthma Endocrine Medical History: Reports: Hx Diabetes Mellitus Type 2 Musculoskeletal Medical History: Reports Hx Musculoskeletal Trauma Psychiatric Medical History: Reports: Hx Bipolar Disorder Traumatic Medical History: Reports: Hx Fractures - Right ankle Past Surgical History: Reports: Hx Oral Surgery - [place] teeth, Hx Tubal Ligation - Immunizations Immunizations up to date: Yes Hx Diphtheria, Pertussis, Tetanus Vaccination: Yes <MICKI BAUTISTA - Last Filed: 07/17/20 19:32> Review of Systems <MICKI BAUTISTA - Last Filed: 07/17/20 19:32> - Review of Systems Notes: Constitutional: No fevers. No chills. EENT: No eye redness. No eye pain. No ear pain. No sore throat. Cardiovascular: No chest pain. No palpitations. Respiratory: No cough. No shortness of breath. No respiratory distress. Gastrointestinal: No abdominal pain. No nausea, vomiting, or diarrhea. Genitourinary: Atraumatic. No lesions. No pain. No discharge. Musculoskeletal: Atraumatic. No swelling. No deformities. Skin: No rash or lesions. Lymphatic: No swollen lymph nodes. Neurologic: No headache. No syncope. Psychiatric: Positive for suicidal ideation. Positive for depression (MICKI BAUTISTA) Physical Exam <MICKI BAUTISTA - Last Filed: 07/17/20 19:32> - Vital signs Vitals: Temp Pulse Resp BP Pulse Ox 98.5 F 73 18 151/99 H 100 07/17/20 14:28 07/17/20 14:28 07/17/20 14:28 07/17/20 14:28 07/17/20 14:28 - Notes Notes: General: Well-developed, well-nourished. In no acute distress. Non-toxic appearing. Cardiac: Well-perfused. Regular rate and rhythm. No murmurs, rubs, or gallops. Pulmonary: No respiratory distress. No cyanosis. Bilateral lung regalado are clear to auscultation. Abdominal: Non-distended. Non-rigid. Bowels sounds are present in all four quadrants. No guarding or rebound. HEENT: Head is atraumatic. Conjunctivae not reddened. No tearing. PERRL. EOMI. Orbits atraumatic. No periorbital swelling or erythema. Oropharynx is without erythema, swelling, or exudates. Neck: Supple. No adenopathy. No meningismus. Dermatologic: Warm with good turgor. No rash. Atraumatic. Chest: Atraumatic. No chest wall tenderness to palpation. Musculoskeletal: Moves all extremities well. No range of motion deficits. no muscular or joint tenderness. No paraspinal muscle tenderness. no midline spinal tenderness or step-off. Genitourinary: Examination deferred Neurologic: No gross neurologic deficits. Psychiatric: Depressed affect but cooperative. SI with plan (MICKI BAUTISTA) Course - Laboratory Result Diagrams: 07/17/20 15:26 07/17/20 15:26 <BLANCA HARRY - Last Filed: 07/17/20 18:43> - Laboratory Result Diagrams: 07/17/20 15:26 07/17/20 15:26 <MICKI BAUTISTA - Last Filed: 07/17/20 19:32> - Re-evaluation Re-evalutation: 07/17/20 16:37 Patient will be assessed by [facility]. 07/17/20 17:58 Labs normal. Patient medically cleared. 07/17/20 19:30 I spoke with Callum Cullen who evaluated the patient. She is not suicidal. Previous history of same type of behavior. We will be discharging her home and she can follow-up at [facility]. (MICKI BAUTISTA) - Vital Signs Vital signs: Temp Pulse Resp BP Pulse Ox 98.5 F 73 18 151/99 H 100 07/17/20 14:28 07/17/20 14:28 07/17/20 14:28 07/17/20 14:28 07/17/20 14:28 - Laboratory Laboratory results interpreted by me: 07/17/20 07/17/20 15:26 15:26 RDW 14.9 H Salicylates < 1.0 L Acetaminophen < 10 L Discharge <BLANCA HARRY - Last Filed: 07/17/20 18:43> <MICKI BAUTISTA - Last Filed: 07/17/20 19:32> - Discharge Clinical Impression: Elevated blood pressure reading Depression Qualifiers: Depression Type: unspecified Qualified Code(s): F32.9 - Major depressive disorder, single episode, unspecified Condition: Good Disposition: HOME, SELF-CARE Instructions: Depression ([facility]) Additional Instructions: You have been evaluated by both medical and behavioral health teams and have been deemed appropriate for discharged. You are reminded to continue working with [facility] for new housing. If you would like to restart medication, you are recommended to engage with your Community Support Team (SERVICE PROMOTER SALESPERSON) for medication management. You have been provided local economic resource list. DEPRESSION: Your evaluation reveals that you have mental depression. While symptoms may be vague, they often include disturbance of sleep, fatigue, loss of appetite, and general loss of interest in life. While depression may be a side effect of drugs, or a reaction to a major change in your life, many cases have no known cause. If depression is acute, and related to a major loss in your life, you can expect it to clear completely with time. If you have been depressed a long time, are prone to repeated bouts of depression or low mood, or have been thi nking of suicide, get help. Depression can be treated with anti-depressant medication and counselling. Long-term depression will often take a few weeks to clear, even with appropriate medication. Follow-up care is important. SUICIDAL IDEATION: Suicidal ideation is a common medical term for thoughts about suicide, which may be as detailed as a formulated plan, without the suicidal act itself. Although most people who undergo suicidal ideation do not commit suicide, some go on to make suicide attempts. The range of suicidal ideation varies greatly from fleeting to detailed planning, role playing, and unsuccessful attempts. While thoughts about suicide are common, most people do not carry out serious actions to commit suicide. Based upon your evaluation and discussion with you, we do not believe you are currently at risk to act upon your thoughts of suicide. You have agreed to return to the Emergency Department, at any time, if you feel inclined to act upon your suicidal thoughts. FOLLOW-UP CARE: If you have been referred to a physician for follow-up care, call the physicians office for an appointment as you were instructed or within the next two days. If you experience worsening or a significant change in your symptoms, notify the physician immediately or return to the Emergency Department at any time for re-evaluation. Referrals: [facility] [Outside] - Follow up as needed
[2020-07-17 20:03] VITALS: BP 130/64
--- NOTE | 2020-07-17 22:48 | EKG REPORT ---
SEVERITY:- ABNORMAL ECG - SINUS RHYTHM LEFT ANTERIOR FASCICULAR BLOCK LEFT VENTRICULAR HYPERTROPHY : Confirmed by: Abhay Goodman 17-Jul-2020 22:47:28
== END 2020-07-17 22:10 | disposition home or self-care (01) ==
LOC: ER 14:02
DX: F32.9 Major depressive disorder, single episode, unspecified (principal); R03.0 Elevated blood-pressure reading, without diagnosis of hypertension; F17.200 Nicotine dependence, unspecified, uncomplicated; E11.9 Type 2 diabetes mellitus without complications; J45.909 Unspecified asthma, uncomplicated
CPT/HCPCS: 36415; 80053; 80307; 81001; 84703; 85025; 93005; 93010; 99285

== ENCOUNTER 2020-07-17 23:41 | Emergency (ER) | payer MEDICAID ==
--- NOTE | 2020-07-18 01:03 | ER Document Report ---
ED Medical Screen (RME) - General Chief Complaint: Suicidal Ideation Stated Complaint: SUICIDAL THOUGHTS,DEPRESSION Time Seen by Provider: 07/18/20 00:58 Mode of Arrival: Ambulatory Information source: Patient Notes: Patient was just evaluated today earlier for reported suicidal ideation. She was discharged and encouraged to follow-up with [facility]. She has returned with suicidal ideation General no acute distress Suicidal ideation I have greeted and performed a rapid initial assessment of this patient. A comprehensive ED assessment and evaluation of the patient, analysis of test results and completion of the medical decision making process will be conducted by additional ED providers. TRAVEL OUTSIDE OF THE [place] IN LAST 30 DAYS: No - Related Data Allergies/Adverse Reactions: No Known Allergies Allergy (Verified 04/06/20 16:31) Past Medical History Pulmonary Medical History: Reports: Hx Asthma Endocrine Medical History: Reports: Hx Diabetes Mellitus Type 2 Musculoskeltal Medical History: Reports Hx Musculoskeletal Trauma Psychiatric Medical History: Reports: Hx Bipolar Disorder Traumatic Medical History: Reports: Hx Fractures - Right ankle Past Surgical History: Reports: Hx Oral Surgery - [place] teeth, Hx Tubal Ligation - Immunizations Immunizations up to date: Yes Hx Diphtheria, Pertussis, Tetanus Vaccination: Yes Physical Exam - Vital signs Vitals: Temp Pulse Resp BP Pulse Ox 98.1 F 84 18 135/84 H 97 07/18/20 00:16 07/18/20 00:16 07/18/20 00:16 07/18/20 00:16 07/18/20 00:16 Course - Vital Signs Vital signs: Temp Pulse Resp BP Pulse Ox 98.1 F 84 18 135/84 H 97 07/18/20 00:16 07/18/20 00:16 07/18/20 00:16 07/18/20 00:16 07/18/20 00:16
--- NOTE | 2020-07-18 01:39 | ER Document Report ---
ED General - General Chief Complaint: Suicidal Ideation Stated Complaint: SUICIDAL THOUGHTS,DEPRESSION Time Seen by Provider: 07/18/20 00:58 Mode of Arrival: Ambulatory TRAVEL OUTSIDE OF THE [place] IN LAST 30 DAYS: No - HPI Notes: 45-year-old female presents with depression and suicidal ideations. Patient states that she has been off her medications, Zoloft and Abilify, because she cannot afford them. Since then she has been having increasing depression and suicidal ideations. She states that she has feeling stressed and has a lot going on. She had a plan to cut her wrist. Then states that after her ED discharge from earlier today, she thought about jumping in front of a car in traffic and letting it hit her. Should not attempt either of these things. She denies pain or otherwise other complaints. - Related Data Allergies/Adverse Reactions: No Known Allergies Allergy (Verified 07/18/20 01:22) Home Medications: ZOLOFT. METFORMIN Past Medical History - General Information source: Patient - Social History Smoking Status: Never Smoker Frequency of alcohol use: None Drug Abuse: None Family History: Reviewed & Not Pertinent Pulmonary Medical History: Reports: Hx Asthma Endocrine Medical History: Reports: Hx Diabetes Mellitus Type 2 Musculoskeletal Medical History: Reports Hx Musculoskeletal Trauma Psychiatric Medical History: Reports: Hx Bipolar Disorder Traumatic Medical History: Reports: Hx Fractures - Right ankle Past Surgical History: Reports: Hx Oral Surgery - [place] teeth, Hx Tubal Ligation - Immunizations Immunizations up to date: Yes Hx Diphtheria, Pertussis, Tetanus Vaccination: Yes Review of Systems - Review of Systems Constitutional: No symptoms reported EENT: No symptoms reported Cardiovascular: No symptoms reported Respiratory: No symptoms reported Gastrointestinal: No symptoms reported Genitourinary: No symptoms reported Female Genitourinary: No symptoms reported Musculoskeletal: No symptoms reported Skin: No symptoms reported Hematologic/Lymphatic: No symptoms reported Neurological/Psychological: Suicidal ideation Physical Exam - Vital signs Vitals: Temp Pulse Resp BP Pulse Ox 98.1 F 84 18 135/84 H 97 07/18/20 00:16 07/18/20 00:16 07/18/20 00:16 07/18/20 00:16 07/18/20 00:16 - General General appearance: Appears well, Alert In distress: None - HEENT Head: Normocephalic, Atraumatic Extraocular movements intact: Yes Pupils: PERRL - Respiratory Respiratory status: No respiratory distress - Cardiovascular Rhythm: Regular - Abdominal Inspection: Obese - Extremities General upper extremity: Normal ROM General lower extremity: Normal ROM - Neurological Neuro grossly intact: Yes Cognition: Normal Orientation: AAOx4 - Psychological Associated symptoms: Depressed - Skin Skin Temperature: Warm Course - Re-evaluation Re-evalutation: 45-year-old female here for depression and suicidal ideations. She was seen and evaluated in the emergency department earlier, she was deemed appropriate for discharge with outpatient follow-up. She reports SI with a plan, she has not made any formal attempts. On exam she is hemodynamically stable, well- appearing, somewhat of a depressed/flat affect. Have ordered labs for the clearance process. Have placed consult for behavioral health, she will board in the ED overnight until she can be seen and assessed in the morning. Care to be turned over to [facility]. - Vital Signs Vital signs: Temp Pulse Resp BP Pulse Ox 98.1 F 84 18 135/84 H 97 07/18/20 00:16 07/18/20 00:16 07/18/20 00:16 07/18/20 00:16 07/18/20 00:16 Discharge - Discharge Clinical Impression: Non compliance w medication regimen Depression Qualifiers: Depression Type: unspecified Qualified Code(s): F32.9 - Major depressive disorder, single episode, unspecified Disposition: OTHER
[2020-07-18 03:35] LABS: URINE AMPHETAMINES SCREEN NEGATIVE; URINE BARBITURATES SCREEN NEGATIVE; URINE BENZODIAZEPINES SCREEN NEGATIVE; URINE COCAINE SCREEN NEGATIVE; URINE MARIJUANA (THC) SCREEN NEGATIVE; URINE METHADONE SCREEN NEGATIVE; URINE PHENCYCLIDINE SCREEN NEGATIVE
[2020-07-18 09:17] VITALS: BP 113/69
--- NOTE | 2020-07-18 11:59 | ER Document Report ---
Doctor's Note Notes: Patient reevaluated at this time. Discussed discharge plan. Patient denies any needs at this time.
== END 2020-07-18 12:17 | disposition home or self-care (01) ==
LOC: ER 23:41
DX: F32.9 Major depressive disorder, single episode, unspecified (principal); T43.226A Underdosing of selective serotonin reuptake inhibitors, initial encounter; T43.596A Underdosing of other antipsychotics and neuroleptics, initial encounter; Z91.120 Patient's intentional underdosing of medication regimen due to financial hardship; Z91.14 Patient's other noncompliance with medication regimen; R45.851 Suicidal ideations; J45.909 Unspecified asthma, uncomplicated; E11.9 Type 2 diabetes mellitus without complications; Z79.84 Long term (current) use of oral hypoglycemic drugs; Z20.828 Contact with and (suspected) exposure to other viral communicable diseases
CPT/HCPCS: 99285; 87635; 81025; 80307; C9803

== ENCOUNTER → 2020-09-07 | Outpatient (CLI) | payer MEDICAID ==
--- NOTE | 2020-09-07 11:44 | WOMENS IMAGING REPORT ---
EXAM DESCRIPTION: 3D SCREENING MAMMO BILAT IMAGES COMPLETED DATE/TIME: 09/07/2020 11:19 am REASON FOR STUDY: Z12.31 ENCOUNTER FOR SCREENING MAMMOGRAM FOR MALIGNANT NEOPLASM OF BREAST Z12.31 ENCNTR SCREEN MAMMOGRAM FOR MALIGNANT NEOPLASM OF FLOR COMPARISON: None. EXAM PARAMETERS: Views: Standard craniocaudal and mediolateral oblique views of each breast recorded using digital acquisition and breast tomosynthesis. Read with the assistance of CAD. .[facility] [place] [facility] Emotionally Impaired Version 9.2 LIMITATIONS: None. FINDINGS: No suspicious masses, suspicious calcifications or architectural distortion. No areas of c oncern. IMPRESSION: NEGATIVE MAMMOGRAM. BIRADS 1. BREAST DENSITY: b. There are scattered areas of fibroglandular density. BIRAD: ASSESSMENT: 1 NEGATIVE RECOMMENDATION: ROUTINE SCREENING COMMENT: The patient has been notified of the results by letter per MQSA requirements. Additional no tification policies are in place for contacting patient with suspicious or incomplete findings. Quality ID #[id number]: The [employer] recommends an annual screening mammogram for women aged 40 years or over. This facility utilizes a reminder system to ensure that all patients receive reminder letters, and/or direct phone calls for appointments. This includes reminders for routine scr eening mammograms, diagnostic mammograms, or other Breast Imaging Interventions when appropriate. Th is patient will be placed in the appropriate reminder system. TECHNICAL DOCUMENTATION: FINDING NUMBER: (1) ASSESSMENT: (1) JOB ID: [id number] 2010 [employer]- All Rights Reserved Reading location - IP/workstation name: [email or web address]
== END ==
LOC: WI 10:44
PROVIDERS: ATTEND Nurse Practitioner Family
DX: Z12.31 Encounter for screening mammogram for malignant neoplasm of breast (principal)
CPT/HCPCS: 77063; 77067